=== PATIENT | male | born 1950 | race Caucasian/White ===

== ENCOUNTER → 2023-05-31 11:28 | Outpatient (REF) | payer MEDICARE, SELFPAY | LOC: HWRAD 11:28 | PROVIDERS: ATTENDING PHYSICIAN Internal Medicine Rheumatology; FAMILY PHYSICIAN Physician Assistant Medical | DX: M79.643 Pain in unspecified hand (principal) | CPT/HCPCS: 73130 ==

== ENCOUNTER → 2023-06-01 08:22 | Outpatient (REF) | payer MEDICARE, SELFPAY ==
[2023-06-01 10:33] LABS: % Basophils 0.7 % (0-2); % Eosinophils 2.8 % (0-6); % Immature Granulocytes 1.3 % (0-0.5); % Lymphocytes 17.8 % (20.5-51.1); % Monocytes 6.5 % (1.7-9.3); % Neutrophils 70.9 % (42.2-75.2); Absolute Basophils 0.1 10^3/uL (0-0.2); Absolute Eosinophils 0.2 10^3/uL (0-0.7); Absolute Immature Granulocytes 0.1 10^3/uL (0-0.05); Absolute Lymphocytes 1.5 10^3/uL (1.2-3.4); Absolute Monocytes 0.5 10^3/uL (0.1-0.6); Absolute Neutrophils 5.9 10^3/uL (1.4-6.5); Hematocrit 36.2 % (39.0-52.0); Hemoglobin 12.2 g/dL (13.0-18.0); Mean Corp Hgb Conc. 33.7 g/dL (33.0-37.0); Mean Corpuscular Hgb 28.8 pg (27.0-31.0); Mean Corpuscular Volume 85.4 fL (80.0-94.0); Mean Platelet Volume 9.5 fL (7.4-10.4); Nucleated Red Blood Cells % 0 % (-); Platelet Count 382 10^3/uL (130-400); Red Blood Cell Count 4.24 10^6/uL (4.70-6.10); Red Cell Dist. Width 15.3 % (11.5-14.5); White Blood Cell Count 8.3 10^3/uL (4.8-10.8)
[2023-06-01 10:57] LABS: ALT (SGPT) 17 U/L (0-50); AST (SGOT) 22 U/L (17-59); Albumin 4.2 g/dl (3.5-5.0); Alkaline Phosphatase 66 U/L (38-126); Blood Urea Nitrogen 25 mg/dl (9-20); Calcium 9.4 mg/dl (8.4-10.2); Carbon Dioxide 22 mmol/L (22-30); Chloride 103 mmol/L (98-107); Glucose 96 mg/dl (70-99); Potassium 4.6 mmol/L (3.5-5.1); Sodium 136 mmol/L (135-145); Total Bilirubin 0.7 mg/dl (0.2-1.3); Total Protein 6.7 g/dl (6.3-8.2); eGFR > 60.00
[2023-06-01 11:23] LABS: Erythrocyte Sed Rate 24 mm/hour (0-20)
[2023-06-01 17:42] LABS: Rheumatoid Agglutinin Less Than 10 IU (<10 IU)
[2023-06-01 19:52] LABS: Hepatitis B Surface Antigen Negative (Negative)
[2023-06-01 20:10] LABS: Hepatitis B Core Ab, Total Negative (Negative); Hepatitis B Surface Antibody Negative; Hepatitis C Antibody Negative (Negative)
[2023-06-03 00:46] LABS: ds-DNA Ab, IgG Reflex To Titer 4 IU (0-24)
[2023-06-03 01:53] LABS: Smith/RNP (ENA), IgG 3 Units (0-19)
[2023-06-03 02:39] LABS: ANA, IgG Reflex to HEp-2 None Detected (None Detected)
[2023-06-03 14:04] LABS: Quantiferon Mitogen minus NIL 5.66 IU/mL; Quantiferon NIL 0.01 IU/mL; Quantiferon Plus TB1 minus NIL 0.01 IU/mL (0.00-0.34); Quantiferon Plus TB2 minus NIL 0.01 IU/mL (0.00-0.34); Quantiferon TB Gold Plus Negative (Negative)
[2023-06-03 16:48] LABS: SSA 52 (Ro)(ENA) Ab, IgG 2 AU/mL (0-40); SSA 60 (Ro)(ENA) Ab, IgG 0 AU/mL (0-40); SSB (La)(ENA) Ab, IgG 0 AU/mL (0-40); Smith (ENA) Antibody, IgG 0 AU/mL (0-40)
== END ==
LOC: HWLAB 08:22
PROVIDERS: ATTENDING PHYSICIAN Internal Medicine Rheumatology; FAMILY PHYSICIAN Physician Assistant Medical
DX: E55.9 Vitamin D deficiency, unspecified (principal); M06.4 Inflammatory polyarthropathy; Z11.1 Encounter for screening for respiratory tuberculosis; Z11.59 Encounter for screening for other viral diseases
CPT/HCPCS: 36415; 80053; 85025; 85652; 86038; 86140; 86225; 86235; 86430; 86480; 86704; 86706; 86803; 87340

== ENCOUNTER → 2023-07-28 08:57 | Outpatient (REF) | payer MEDICARE, SELFPAY ==
[2023-07-28 12:34] LABS: % Basophils 0.2 % (0-2); % Eosinophils 0.1 % (0-6); % Immature Granulocytes 0.5 % (0-0.5); % Lymphocytes 4.5 % (20.5-51.1); % Monocytes 2.7 % (1.7-9.3); Absolute Immature Granulocytes 0.1 10^3/uL (0-0.05); Absolute Lymphocytes 0.5 10^3/uL (1.2-3.4); Absolute Monocytes 0.3 10^3/uL (0.1-0.6); Absolute Neutrophils 10.9 10^3/uL (1.4-6.5); Hematocrit 35.3 % (39.0-52.0); Hemoglobin 11.6 g/dL (13.0-18.0); Mean Corp Hgb Conc. 32.9 g/dL (33.0-37.0); Mean Corpuscular Hgb 29.4 pg (27.0-31.0); Mean Corpuscular Volume 89.6 fL (80.0-94.0); Mean Platelet Volume 10.1 fL (7.4-10.4); Nucleated Red Blood Cells % 0 % (-); Platelet Count 305 10^3/uL (130-400); Red Blood Cell Count 3.94 10^6/uL (4.70-6.10); Red Cell Dist. Width 16.7 % (11.5-14.5); White Blood Cell Count 11.9 10^3/uL (4.8-10.8)
[2023-07-28 12:51] LABS: ALT (SGPT) 20 U/L (0-50); AST (SGOT) 20 U/L (17-59); Albumin 3.8 g/dl (3.5-5.0); Alkaline Phosphatase 58 U/L (38-126); Blood Urea Nitrogen 49 mg/dl (9-20); Calcium 9.6 mg/dl (8.4-10.2); Carbon Dioxide 25 mmol/L (22-30); Chloride 101 mmol/L (98-107); Glucose 124 mg/dl (70-99); Potassium 4.5 mmol/L (3.5-5.1); Sodium 137 mmol/L (135-145); Total Bilirubin 0.8 mg/dl (0.2-1.3); Total Protein 6.5 g/dl (6.3-8.2); eGFR 49.47
[2023-07-28 16:01] LABS: Erythrocyte Sed Rate 79 mm/hour (0-20)
== END ==
LOC: HWLAB 08:57
PROVIDERS: ATTENDING PHYSICIAN Internal Medicine Rheumatology; FAMILY PHYSICIAN Physician Assistant Medical
DX: M06.4 Inflammatory polyarthropathy (principal); Z79.899 Other long term (current) drug therapy
CPT/HCPCS: 36415; 80053; 85025; 85652; 86140

== ENCOUNTER → 2023-07-31 07:26 | Outpatient (REF) | payer MEDICARE, SELFPAY | LOC: HWRAD 07:26 | PROVIDERS: ATTENDING PHYSICIAN Internal Medicine Critical Care Medicine; FAMILY PHYSICIAN Physician Assistant Medical | DX: Z87.891 Personal history of nicotine dependence (principal) | CPT/HCPCS: 71271 ==

== ENCOUNTER → 2023-08-08 08:42 | Outpatient (REF) | payer MEDICARE, SELFPAY | LOC: HWLAB 08:42 | PROVIDERS: ATTENDING PHYSICIAN Nurse Practitioner Adult Health; FAMILY PHYSICIAN Physician Assistant Medical | DX: J84.9 Interstitial pulmonary disease, unspecified (principal) | CPT/HCPCS: 87070; 87205 ==

== ENCOUNTER → 2023-08-11 10:03 | Outpatient (REF) | payer MEDICARE, SELFPAY | LOC: HWRCS 10:03 | PROVIDERS: ATTENDING PHYSICIAN Nurse Practitioner Adult Health; FAMILY PHYSICIAN Physician Assistant Medical | DX: J84.9 Interstitial pulmonary disease, unspecified (principal) | CPT/HCPCS: 93306 ==

== ENCOUNTER → 2023-08-17 10:35 | Outpatient (REF) | payer MEDICARE, SELFPAY ==
[2023-08-17 12:12] LABS: % Basophils 0.7 % (0-2); % Eosinophils 0.2 % (0-6); % Immature Granulocytes 0.5 % (0-0.5); % Lymphocytes 8.4 % (20.5-51.1); % Monocytes 3.4 % (1.7-9.3); % Neutrophils 86.8 % (42.2-75.2); Absolute Lymphocytes 0.5 10^3/uL (1.2-3.4); Absolute Monocytes 0.2 10^3/uL (0.1-0.6); Absolute Neutrophils 5.2 10^3/uL (1.4-6.5); Hematocrit 32.8 % (39.0-52.0); Hemoglobin 10.7 g/dL (13.0-18.0); Mean Corp Hgb Conc. 32.6 g/dL (33.0-37.0); Mean Corpuscular Hgb 29.6 pg (27.0-31.0); Mean Corpuscular Volume 90.9 fL (80.0-94.0); Nucleated Red Blood Cells % 0 % (-); Platelet Count 392 10^3/uL (130-400); Red Blood Cell Count 3.61 10^6/uL (4.70-6.10); Red Cell Dist. Width 17.6 % (11.5-14.5)
[2023-08-17 13:47] LABS: ALT (SGPT) 24 U/L (0-50); AST (SGOT) 26 U/L (17-59); Albumin 3.9 g/dl (3.5-5.0); Alkaline Phosphatase 65 U/L (38-126); Blood Urea Nitrogen 35 mg/dl (9-20); Calcium 9.4 mg/dl (8.4-10.2); Carbon Dioxide 26 mmol/L (22-30); Chloride 106 mmol/L (98-107); Glucose 111 mg/dl (70-99); Iron 78 ug/dl (49-181); Potassium 5.5 mmol/L (3.5-5.1); Total Bilirubin 0.4 mg/dl (0.2-1.3); Total Protein 6.4 g/dl (6.3-8.2); eGFR > 60.00
[2023-08-17 13:56] LABS: Percent Saturation 26 % (20-50); Total Iron Binding Capacity 290 ug/dl (261-462)
[2023-08-17 14:01] LABS: Sodium 137 mmol/L (135-145)
[2023-08-17 14:06] LABS: Erythrocyte Sed Rate 30 mm/hour (0-20)
[2023-08-17 14:54] LABS: Ferritin 38.1 ng/ml (17.9-464.0)
[2023-08-21 12:30] LABS: Albumin 3.75 g/dL (3.75-5.01); Alpha 1 Globulin 0.33 g/dL (0.19-0.46); Alpha 2 Globulin 0.88 g/dL (0.48-1.05); Free Kappa Light Chains,Quant 21.74 mg/L (3.30-19.40); Free Lambda Light Chains,Quant 15.96 mg/L (5.71-26.30); IgA 190 mg/dL (68-408); IgG 629 mg/dL (768-1632); IgM 53 mg/dL (35-263); Immunofixation Electrophoresis IFE Done; Kappa/Lambda Fr Light Ratio 1.36 (0.26-1.65); Total Protein-Electrophoresis 6.3 g/dL (6.3-8.2)
== END ==
LOC: HWLAB 10:35
PROVIDERS: ATTENDING PHYSICIAN Internal Medicine Rheumatology; FAMILY PHYSICIAN Physician Assistant Medical
DX: D64.9 Anemia, unspecified (principal); M06.4 Inflammatory polyarthropathy; N18.30 Chronic kidney disease, stage 3 unspecified; Z79.899 Other long term (current) drug therapy
CPT/HCPCS: 36415; 80053; 82728; 82784; 83521; 83540; 83550; 84155; 84165; 85025; 85652; 86140; 86334

== ENCOUNTER → 2023-09-11 08:51 | Outpatient (REF) | payer MEDICARE, SELFPAY ==
[2023-09-11 12:03] LABS: % Basophils 0.2 % (0-2); % Eosinophils 0.5 % (0-6); % Immature Granulocytes 0.5 % (0-0.5); % Lymphocytes 7.7 % (20.5-51.1); % Monocytes 5.6 % (1.7-9.3); % Neutrophils 85.5 % (42.2-75.2); Absolute Lymphocytes 0.6 10^3/uL (1.2-3.4); Absolute Monocytes 0.5 10^3/uL (0.1-0.6); Absolute Neutrophils 7.2 10^3/uL (1.4-6.5); Hematocrit 33.3 % (39.0-52.0); Hemoglobin 11.1 g/dL (13.0-18.0); Mean Corp Hgb Conc. 33.3 g/dL (33.0-37.0); Mean Corpuscular Hgb 30.7 pg (27.0-31.0); Mean Corpuscular Volume 92.2 fL (80.0-94.0); Mean Platelet Volume 9.5 fL (7.4-10.4); Nucleated Red Blood Cells % 0 % (-); Platelet Count 310 10^3/uL (130-400); Red Blood Cell Count 3.61 10^6/uL (4.70-6.10); Red Cell Dist. Width 16.4 % (11.5-14.5); White Blood Cell Count 8.4 10^3/uL (4.8-10.8)
[2023-09-11 12:04] LABS: Erythrocyte Sed Rate 11 mm/hour (0-20)
[2023-09-11 12:42] LABS: ALT (SGPT) 22 U/L (0-50); AST (SGOT) 22 U/L (17-59); Albumin 3.6 g/dl (3.5-5.0); Alkaline Phosphatase 52 U/L (38-126); Blood Urea Nitrogen 37 mg/dl (9-20); Calcium 9.2 mg/dl (8.4-10.2); Carbon Dioxide 24 mmol/L (22-30); Chloride 108 mmol/L (98-107); Glucose 106 mg/dl (70-99); Potassium 4.4 mmol/L (3.5-5.1); Sodium 140 mmol/L (135-145); Total Bilirubin 0.7 mg/dl (0.2-1.3); eGFR > 60.00
[2023-09-11 12:43] LABS: C-Reactive Protein < 5.00 mg/L (0.0-10.00)
== END ==
LOC: HWLAB 08:51
PROVIDERS: ATTENDING PHYSICIAN Internal Medicine Rheumatology; FAMILY PHYSICIAN Physician Assistant Medical
DX: D64.9 Anemia, unspecified (principal); M06.4 Inflammatory polyarthropathy; N18.30 Chronic kidney disease, stage 3 unspecified
CPT/HCPCS: 36415; 80053; 85025; 85652; 86140

== ENCOUNTER → 2023-09-26 07:26 | Outpatient (REF) | payer MEDICARE, SELFPAY | LOC: HWRAD 07:26 | PROVIDERS: ATTENDING PHYSICIAN Nurse Practitioner Adult Health; FAMILY PHYSICIAN Physician Assistant Medical | DX: R91.1 Solitary pulmonary nodule (principal) | CPT/HCPCS: 71250 ==

== ENCOUNTER → 2023-11-06 07:07 | Outpatient (REF) | payer MEDICARE, SELFPAY ==
[2023-11-06 10:00] LABS: ALT (SGPT) 20 U/L (0-50); AST (SGOT) 21 U/L (17-59); Albumin 3.8 g/dl (3.5-5.0); Alkaline Phosphatase 58 U/L (38-126); Blood Urea Nitrogen 26 mg/dl (9-20); Calcium 9.5 mg/dl (8.4-10.2); Carbon Dioxide 28 mmol/L (22-30); Chloride 104 mmol/L (98-107); Glucose 92 mg/dl (70-99); Potassium 4.3 mmol/L (3.5-5.1); Sodium 138 mmol/L (135-145); Total Bilirubin 0.4 mg/dl (0.2-1.3); Total Protein 6.1 g/dl (6.3-8.2); eGFR > 60.00
[2023-11-06 10:04] LABS: % Basophils 0.7 % (0-2); % Eosinophils 2.1 % (0-6); % Immature Granulocytes 0.3 % (0-0.5); % Lymphocytes 24.1 % (20.5-51.1); % Monocytes 8.8 % (1.7-9.3); Absolute Basophils 0.1 10^3/uL (0-0.2); Absolute Eosinophils 0.1 10^3/uL (0-0.7); Absolute Lymphocytes 1.6 10^3/uL (1.2-3.4); Absolute Monocytes 0.6 10^3/uL (0.1-0.6); Absolute Neutrophils 4.4 10^3/uL (1.4-6.5); Hematocrit 34.9 % (39.0-52.0); Hemoglobin 11.3 g/dL (13.0-18.0); Mean Corp Hgb Conc. 32.4 g/dL (33.0-37.0); Mean Corpuscular Hgb 29.6 pg (27.0-31.0); Mean Corpuscular Volume 91.4 fL (80.0-94.0); Mean Platelet Volume 10.1 fL (7.4-10.4); Nucleated Red Blood Cells % 0 % (-); Platelet Count 306 10^3/uL (130-400); Red Blood Cell Count 3.82 10^6/uL (4.70-6.10); Red Cell Dist. Width 13.8 % (11.5-14.5); White Blood Cell Count 6.8 10^3/uL (4.8-10.8)
[2023-11-06 10:23] LABS: Erythrocyte Sed Rate 22 mm/hour (0-20)
== END ==
LOC: HWLAB 07:07
PROVIDERS: ATTENDING PHYSICIAN Physician Assistant; FAMILY PHYSICIAN Physician Assistant Medical
DX: D64.9 Anemia, unspecified (principal); M06.4 Inflammatory polyarthropathy; M15.0 Primary generalized (osteo)arthritis; M47.816 Spondylosis without myelopathy or radiculopathy, lumbar region; M47.892 Other spondylosis, cervical region; N18.30 Chronic kidney disease, stage 3 unspecified; R06.02 Shortness of breath; Z79.899 Other long term (current) drug therapy
CPT/HCPCS: 36415; 80053; 85025; 85652; 86140

== ENCOUNTER → 2023-11-12 07:02 | Outpatient (REF) | payer MEDICARE, SELFPAY | LOC: PAVMRI 07:02 | PROVIDERS: ATTENDING PHYSICIAN Physician Assistant; FAMILY PHYSICIAN Physician Assistant Medical | DX: M25.511 Pain in right shoulder (principal) | CPT/HCPCS: 73221 ==

== ENCOUNTER → 2023-11-17 13:09 | Outpatient (REF) | payer MEDICARE, SELFPAY | LOC: RAD 13:09 | PROVIDERS: ATTENDING PHYSICIAN Orthopaedic Surgery; FAMILY PHYSICIAN Physician Assistant Medical | DX: M79.662 Pain in left lower leg (principal) | CPT/HCPCS: 93971 ==

== ENCOUNTER → 2023-12-21 07:04 | Outpatient (REF) | payer MEDICARE, SELFPAY ==
[2023-12-21 09:22] LABS: % Basophils 0.7 % (0-2); % Eosinophils 1.7 % (0-6); % Immature Granulocytes 0.5 % (0-0.5); % Lymphocytes 22.2 % (20.5-51.1); % Monocytes 10.5 % (1.7-9.3); % Neutrophils 64.4 % (42.2-75.2); Absolute Eosinophils 0.1 10^3/uL (0-0.7); Absolute Lymphocytes 1.3 10^3/uL (1.2-3.4); Absolute Monocytes 0.6 10^3/uL (0.1-0.6); Absolute Neutrophils 3.8 10^3/uL (1.4-6.5); Hematocrit 33.5 % (39.0-52.0); Hemoglobin 11.2 g/dL (13.0-18.0); Mean Corp Hgb Conc. 33.4 g/dL (33.0-37.0); Mean Corpuscular Hgb 30.5 pg (27.0-31.0); Mean Corpuscular Volume 91.3 fL (80.0-94.0); Mean Platelet Volume 9.5 fL (7.4-10.4); Nucleated Red Blood Cells % 0 % (-); Platelet Count 258 10^3/uL (130-400); Red Blood Cell Count 3.67 10^6/uL (4.70-6.10); White Blood Cell Count 5.9 10^3/uL (4.8-10.8)
[2023-12-21 10:59] LABS: ALT (SGPT) 29 U/L (0-50); AST (SGOT) 32 U/L (17-59); Albumin 3.9 g/dl (3.5-5.0); Alkaline Phosphatase 55 U/L (38-126); Blood Urea Nitrogen 31 mg/dl (9-20); Calcium 9.1 mg/dl (8.4-10.2); Carbon Dioxide 23 mmol/L (22-30); Chloride 104 mmol/L (98-107); Glucose 99 mg/dl (70-99); Potassium 4.5 mmol/L (3.5-5.1); Sodium 139 mmol/L (135-145); Total Bilirubin 0.6 mg/dl (0.2-1.3); Total Protein 6.1 g/dl (6.3-8.2); eGFR > 60.00
[2023-12-21 11:55] LABS: Erythrocyte Sed Rate 20 mm/hour (0-20)
== END ==
LOC: HWLAB 07:04
PROVIDERS: ATTENDING PHYSICIAN Internal Medicine Rheumatology; FAMILY PHYSICIAN Physician Assistant Medical
DX: M06.4 Inflammatory polyarthropathy (principal); Z79.899 Other long term (current) drug therapy
CPT/HCPCS: 36415; 80053; 85025; 85652; 86140

== ENCOUNTER → 2024-01-05 07:13 | Outpatient (REF) | payer MEDICARE, SELFPAY | LOC: HWRAD 07:13 | PROVIDERS: ATTENDING PHYSICIAN Otolaryngology; FAMILY PHYSICIAN Physician Assistant Medical | DX: J32.2 Chronic ethmoidal sinusitis (principal) | CPT/HCPCS: 70486 ==

== ENCOUNTER → 2024-01-26 07:24 | Outpatient (REF) | payer MEDICARE, SELFPAY | LOC: HWCARD 07:24 | PROVIDERS: ATTENDING PHYSICIAN Otolaryngology; FAMILY PHYSICIAN Physician Assistant Medical | DX: Z01.818 Encounter for other preprocedural examination (principal) | CPT/HCPCS: 93005 ==

== ENCOUNTER → 2024-02-14 13:00 | Outpatient (REF) | payer MEDICARE, SELFPAY | LOC: CLAB 13:00 | PROVIDERS: ATTENDING PHYSICIAN Otolaryngology | DX: J32.2 Chronic ethmoidal sinusitis (principal) | CPT/HCPCS: 88304; 88311; 87070; 87075; 87102; 87147 ==

== ENCOUNTER → 2024-03-05 07:12 | Outpatient (REF) | payer MEDICARE, SELFPAY ==
[2024-03-05 09:54] LABS: % Basophils 0.7 % (0-2); % Eosinophils 2.2 % (0-6); % Immature Granulocytes 0.4 % (0-0.5); % Lymphocytes 15.6 % (20.5-51.1); % Monocytes 7.3 % (1.7-9.3); % Neutrophils 73.8 % (42.2-75.2); Absolute Basophils 0.1 10^3/uL (0-0.2); Absolute Eosinophils 0.2 10^3/uL (0-0.7); Absolute Lymphocytes 1.2 10^3/uL (1.2-3.4); Absolute Monocytes 0.6 10^3/uL (0.1-0.6); Absolute Neutrophils 5.6 10^3/uL (1.4-6.5); Hematocrit 33.2 % (39.0-52.0); Hemoglobin 10.7 g/dL (13.0-18.0); Mean Corp Hgb Conc. 32.2 g/dL (33.0-37.0); Mean Corpuscular Hgb 29.2 pg (27.0-31.0); Mean Corpuscular Volume 90.5 fL (80.0-94.0); Mean Platelet Volume 9.3 fL (7.4-10.4); Nucleated Red Blood Cells % 0 % (-); Platelet Count 340 10^3/uL (130-400); Red Blood Cell Count 3.67 10^6/uL (4.70-6.10); Red Cell Dist. Width 14.6 % (11.5-14.5); White Blood Cell Count 7.6 10^3/uL (4.8-10.8)
[2024-03-05 10:04] LABS: ALT (SGPT) 23 U/L (0-50); AST (SGOT) 24 U/L (17-59); Albumin 3.8 g/dl (3.5-5.0); Alkaline Phosphatase 65 U/L (38-126); Blood Urea Nitrogen 28 mg/dl (9-20); Calcium 9.6 mg/dl (8.4-10.2); Carbon Dioxide 26 mmol/L (22-30); Chloride 103 mmol/L (98-107); Glucose 98 mg/dl (70-99); Potassium 4.6 mmol/L (3.5-5.1); Sodium 140 mmol/L (135-145); Total Bilirubin 0.5 mg/dl (0.2-1.3); Total Protein 6.2 g/dl (6.3-8.2); eGFR > 60.00
[2024-03-05 10:15] LABS: Erythrocyte Sed Rate 37 mm/hour (0-20)
== END ==
LOC: HWLAB 07:12
PROVIDERS: ATTENDING PHYSICIAN Internal Medicine Rheumatology; FAMILY PHYSICIAN Physician Assistant Medical
DX: M06.4 Inflammatory polyarthropathy (principal); Z79.899 Other long term (current) drug therapy
CPT/HCPCS: 36415; 80053; 85025; 85652; 86140

== ENCOUNTER → 2024-03-11 07:16 | Outpatient (REF) | payer MEDICARE, SELFPAY | LOC: HWRAD 07:16 | PROVIDERS: ATTENDING PHYSICIAN Nurse Practitioner Adult Health; FAMILY PHYSICIAN Physician Assistant Medical | DX: R91.1 Solitary pulmonary nodule (principal) | CPT/HCPCS: 71250 ==

== ENCOUNTER → 2024-05-07 07:11 | Outpatient (REF) | payer MEDICARE, SELFPAY | LOC: HWRAD 07:11 | PROVIDERS: ATTENDING PHYSICIAN Nurse Practitioner Family; FAMILY PHYSICIAN Physician Assistant Medical | DX: R91.8 Other nonspecific abnormal finding of lung field (principal) | CPT/HCPCS: 71250 ==

== ENCOUNTER → 2024-06-02 08:21 | Outpatient (REF) | payer MEDICARE, SELFPAY | LOC: MRI 3T 08:21 | PROVIDERS: ATTENDING PHYSICIAN Orthopaedic Surgery; FAMILY PHYSICIAN Physician Assistant Medical | DX: M75.82 Other shoulder lesions, left shoulder (principal) | CPT/HCPCS: 73221 ==

== ENCOUNTER → 2024-06-13 06:57 | Outpatient (REF) | payer MEDICARE, SELFPAY ==
[2024-06-13 08:51] LABS: % Basophils 0.8 % (0-2); % Eosinophils 1.9 % (0-6); % Immature Granulocytes 0.3 % (0-0.5); % Lymphocytes 22.7 % (20.5-51.1); % Monocytes 7.8 % (1.7-9.3); % Neutrophils 66.5 % (42.2-75.2); Absolute Basophils 0.1 10^3/uL (0-0.2); Absolute Eosinophils 0.1 10^3/uL (0-0.7); Absolute Lymphocytes 1.3 10^3/uL (1.2-3.4); Absolute Monocytes 0.5 10^3/uL (0.1-0.6); Absolute Neutrophils 3.9 10^3/uL (1.4-6.5); Hematocrit 34.5 % (39.0-52.0); Hemoglobin 11.1 g/dL (13.0-18.0); Mean Corp Hgb Conc. 32.2 g/dL (33.0-37.0); Mean Corpuscular Hgb 29.6 pg (27.0-31.0); Mean Platelet Volume 9.6 fL (7.4-10.4); Nucleated Red Blood Cells % 0 % (-); Platelet Count 287 10^3/uL (130-400); Red Blood Cell Count 3.75 10^6/uL (4.70-6.10); Red Cell Dist. Width 14.5 % (11.5-14.5); White Blood Cell Count 5.9 10^3/uL (4.8-10.8)
[2024-06-13 09:44] LABS: Blood Urea Nitrogen 31 mg/dl (9-20); Calcium 9.3 mg/dl (8.4-10.2); Carbon Dioxide 27 mmol/L (22-30); Chloride 105 mmol/L (98-107); Glucose 82 mg/dl (70-99); Potassium 4.2 mmol/L (3.5-5.1); Sodium 138 mmol/L (135-145); eGFR > 60.00
== END ==
LOC: SDSPAT 06:57
PROVIDERS: ATTENDING PHYSICIAN Orthopaedic Surgery; FAMILY PHYSICIAN Physician Assistant Medical
DX: Z01.818 Encounter for other preprocedural examination (principal)
CPT/HCPCS: 36415; 80048; 85025; 93005

== ENCOUNTER 2024-06-20 06:24 | Day surgery (SDC) | payer MEDICARE, SELFPAY ==
[2024-06-13 14:01] VITALS: BMI 25.6
[2024-06-20] VITALS (12 sets, daily range): BP systolic 150–164; BP diastolic 83–97; BMI 25.6
[2024-06-20] MEDS: TYLENOL 1000 MG PO (08:55)
[2024-06-20] MEDS: CELEBREX 200 MG PO (08:55)
[2024-06-20] MEDS: NORMOSOL-R/PLASMALYTE-A 1000 IV (09:01)
[2024-06-20] MEDS: DILAUDID 0.5 MG IV (14:59)
[2024-06-20] MEDS: DILAUDID 0.25 MG IV (15:18)
== END 2024-06-20 17:17 | disposition home or self-care (01) ==
LOC: SDS 06:24
PROVIDERS: ATTENDING PHYSICIAN Orthopaedic Surgery
DX: M75.122 Complete rotator cuff tear or rupture of left shoulder, not specified as traumatic (principal); M75.42 Impingement syndrome of left shoulder
CPT/HCPCS: 29827; C1713

== ENCOUNTER → 2024-08-06 08:03 | Outpatient (REF) | payer MEDICARE, SELFPAY ==
[2024-08-06 09:57] LABS: ALT (SGPT) 25 U/L (0-50); AST (SGOT) 23 U/L (17-59); Albumin 3.7 g/dl (3.5-5.0); Alkaline Phosphatase 66 U/L (38-126); Blood Urea Nitrogen 28 mg/dl (9-20); Calcium 9.3 mg/dl (8.4-10.2); Carbon Dioxide 27 mmol/L (22-30); Chloride 109 mmol/L (98-107); Glucose 98 mg/dl (70-99); Potassium 4.3 mmol/L (3.5-5.1); Sodium 141 mmol/L (135-145); Total Bilirubin 0.5 mg/dl (0.2-1.3); Total Protein 5.9 g/dl (6.3-8.2); eGFR > 60.00
[2024-08-06 10:20] LABS: Vitamin D, 25-OH*** 35.1 ng/mL (30-80)
[2024-08-06 10:24] LABS: % Basophils 0.9 % (0-2); % Eosinophils 1.5 % (0-6); % Immature Granulocytes 0.6 % (0-0.5); % Lymphocytes 8.7 % (20.5-51.1); % Monocytes 5.7 % (1.7-9.3); % Neutrophils 82.6 % (42.2-75.2); Absolute Basophils 0.1 10^3/uL (0-0.2); Absolute Eosinophils 0.1 10^3/uL (0-0.7); Absolute Immature Granulocytes 0.1 10^3/uL (0-0.05); Absolute Lymphocytes 0.8 10^3/uL (1.2-3.4); Absolute Monocytes 0.5 10^3/uL (0.1-0.6); Absolute Neutrophils 7.3 10^3/uL (1.4-6.5); Hematocrit 33.4 % (39.0-52.0); Hemoglobin 10.9 g/dL (13.0-18.0); Mean Corp Hgb Conc. 32.6 g/dL (33.0-37.0); Mean Corpuscular Hgb 30.1 pg (27.0-31.0); Mean Corpuscular Volume 92.3 fL (80.0-94.0); Mean Platelet Volume 9.9 fL (7.4-10.4); Nucleated Red Blood Cells % 0 % (-); Platelet Count 277 10^3/uL (130-400); Red Blood Cell Count 3.62 10^6/uL (4.70-6.10); Red Cell Dist. Width 14.6 % (11.5-14.5); White Blood Cell Count 8.8 10^3/uL (4.8-10.8)
[2024-08-06 11:27] LABS: Erythrocyte Sed Rate 10 mm/hour (0-20)
== END ==
LOC: HWLAB 08:03
PROVIDERS: ATTENDING PHYSICIAN Internal Medicine Rheumatology; FAMILY PHYSICIAN Physician Assistant Medical
DX: E55.9 Vitamin D deficiency, unspecified (principal); M06.4 Inflammatory polyarthropathy; Z79.899 Other long term (current) drug therapy
CPT/HCPCS: 36415; 80053; 82306; 85025; 85652; 86140

== ENCOUNTER → 2024-08-29 08:17 | Outpatient (REF) | payer MEDICARE, SELFPAY ==
[2024-08-31 13:33] LABS: Quantiferon Mitogen minus NIL 1.97 IU/mL; Quantiferon NIL 0.02 IU/mL; Quantiferon Plus TB1 minus NIL 0.01 IU/mL (<=0.34); Quantiferon TB Gold Plus Negative (Negative)
== END ==
LOC: HWLAB 08:17
PROVIDERS: ATTENDING PHYSICIAN Internal Medicine Rheumatology; FAMILY PHYSICIAN Physician Assistant Medical
DX: Z11.1 Encounter for screening for respiratory tuberculosis (principal)
CPT/HCPCS: 36415; 86480

== ENCOUNTER → 2024-09-10 16:00 | Outpatient (REF) | payer MEDICARE, SELFPAY | LOC: CLAB 16:00 | PROVIDERS: ATTENDING PHYSICIAN Physician Assistant | DX: J32.0 Chronic maxillary sinusitis (principal) | CPT/HCPCS: 87070; 87077; 87147; 87186; 87205 ==

== ENCOUNTER → 2024-09-20 12:25 | Outpatient (REF) | payer MEDICARE, SELFPAY ==
[2024-09-20 16:05] LABS: % Basophils 0.9 % (0-2); % Eosinophils 0.1 % (0-6); % Immature Granulocytes 0.3 % (0-0.5); % Monocytes 4.3 % (1.7-9.3); % Neutrophils 88.4 % (42.2-75.2); Absolute Basophils 0.1 10^3/uL (0-0.2); Absolute Lymphocytes 0.4 10^3/uL (1.2-3.4); Absolute Monocytes 0.3 10^3/uL (0.1-0.6); Absolute Neutrophils 6.2 10^3/uL (1.4-6.5); Hematocrit 33.9 % (39.0-52.0); Hemoglobin 11.3 g/dL (13.0-18.0); Mean Corp Hgb Conc. 33.3 g/dL (33.0-37.0); Mean Corpuscular Hgb 30.7 pg (27.0-31.0); Mean Corpuscular Volume 92.1 fL (80.0-94.0); Mean Platelet Volume 10.3 fL (7.4-10.4); Nucleated Red Blood Cells % 0 % (-); Platelet Count 278 10^3/uL (130-400); Red Blood Cell Count 3.68 10^6/uL (4.70-6.10); White Blood Cell Count 7.1 10^3/uL (4.8-10.8)
[2024-09-20 16:12] LABS: ALT (SGPT) 27 U/L (0-50); AST (SGOT) 33 U/L (17-59); Alkaline Phosphatase 58 U/L (38-126); Blood Urea Nitrogen 25 mg/dl (9-20); Calcium 9.5 mg/dl (8.4-10.2); Carbon Dioxide 25 mmol/L (22-30); Chloride 111 mmol/L (98-107); Glucose 103 mg/dl (70-99); Potassium 3.9 mmol/L (3.5-5.1); Sodium 141 mmol/L (135-145); Total Bilirubin 0.5 mg/dl (0.2-1.3); Total Protein 6.3 g/dl (6.3-8.2); eGFR > 60.00
[2024-09-20 16:28] LABS: Erythrocyte Sed Rate 46 mm/hour (0-20)
== END ==
LOC: HWLAB 12:25
PROVIDERS: ATTENDING PHYSICIAN Internal Medicine Rheumatology; FAMILY PHYSICIAN Physician Assistant Medical
DX: M06.4 Inflammatory polyarthropathy (principal); Z79.899 Other long term (current) drug therapy
CPT/HCPCS: 36415; 80053; 85025; 85652; 86140

== ENCOUNTER → 2024-10-02 12:30 | Outpatient (REF) | payer MEDICARE, SELFPAY | LOC: CLAB 12:30 | PROVIDERS: ATTENDING PHYSICIAN Specialist | DX: R22.31 Localized swelling, mass and lump, right upper limb (principal) | CPT/HCPCS: 88304 ==

== ENCOUNTER 2024-11-25 23:22 | Inpatient (IN) | payer MEDICARE, SELFPAY ==
[2024-11-25] VITALS (9 sets, daily range): BP systolic 112–170; BP diastolic 79–108; BMI 23.0
[2024-11-25 13:42] LABS: Hematocrit 42.6 % (39.0-52.0); Hemoglobin 14.0 g/dL (13.0-18.0); Mean Corp Hgb Conc. 32.9 g/dL (33.0-37.0); Mean Corpuscular Volume 90.3 fL (80.0-94.0); Nucleated Red Blood Cells % 0 % (-); Platelet Count 285 10^3/uL (130-400); Red Cell Dist. Width 15.3 % (11.5-14.5)
[2024-11-25 13:56] LABS: ALT (SGPT) 62 U/L (0-50); AST (SGOT) 45 U/L (17-59); Albumin 4.9 g/dl (3.5-5.0); Alkaline Phosphatase 58 U/L (38-126); Blood Urea Nitrogen 66 mg/dl (9-20); Calcium 10.2 mg/dl (8.4-10.2); Carbon Dioxide 26 mmol/L (22-30); Chloride 98 mmol/L (98-107); Glucose 166 mg/dl (70-99); Potassium 4.3 mmol/L (3.5-5.1); Sodium 137 mmol/L (135-145); Total Protein 7.4 g/dl (6.3-8.2); eGFR 45.50
--- NOTE | 2024-11-25 18:20 | ED.GENMED ---
History of Present Illness
General
Chief Complaint: Abdominal Pain
Time Seen by Provider: 11/25/24 17:17
History of Present Illness
History of Present Illness:
74-year-old male presents to the emergency department for evaluation of lower abdominal pain and intractable nausea and vomiting for the past 4 days. States he is lost 11 pounds. Unable to tolerate any p.o. fluids. Prior abdominal surgery
includes right inguinal hernia and left inguinal hernia repair. Denies any fevers, night sweats. He notes that he has not passed any stool or gas in the past 4 days as well.
Review of Systems
Review of Systems
Allergies reviewed?: Yes
All Other Systems: ROS reviewed and negative except as documented in HPI and ROS
Phy Exam
Physical Exam
Physical Exam:
GEN: Well appearing, NAD, WDWN
HEENT: Oral mucosa moist, no scleral icterus
Cardiac: Regular rate and rhythm, no murmurs
Lung: No respiratory distress, no tachypnea
Abdomen: Protuberant and mildly rigid, soft but prominent umbilical hernia noted, diffusely tender in the lower abdomen
MSK: No gross deformity or injuries
Skin: Good color, no pallor or jaundice, no rashes
Neuro: AO x3, moves all extremities freely
Psych: Calm, cooperative
Course
Orders/Labs/Results
Orders:
Orders
11/25/24 13:11
Electrocardiogram (*1) Urgent
Reason for Study: Abdominal Pain
11/25/24 13:12
EKG- Treatment ONCE
11/25/24 13:26
Complete Blood Count/With Diff Urgent
Comprehensive Metabolic Panel Urgent
11/25/24 18:18
CT Abd/Pel (IV only)-DH only Urgent
Comment:
Reason For Exam: abd pain/vomiting
Ondansetron Injectable [Zofran] 4 mg IV NOW STA
11/25/24 18:19
Lactated Ringers [Lr] 1,000 ml IV BOLUS
11/25/24 18:49
Lactic Acid Urgent
11/25/24 20:11
Lactated Ringers [Lr] 500 ml IV BOLUS
11/25/24 21:44
HYDROmorphone [Dilaudid] 0.5 mg IV NOW STA
11/25/24 22:48
Admit/Transfer Patient As Directed
Co-Sign Provider:
Level of Care: Inpatient admission
Assign to:: Medical/Surgical
Physician / Group: rafat
Diagnosis: small bowel obstruction
Reason for Hospitalization: small bowel obstruction
Expected length of stay greater than two midnights?: Yes
ELOS- Estimated Length of Stay in days: 2
I certify the patient meets the requirements for IP care: Yes
PRN Pain Medication Management As Directed
May give lesser potent ordered pain med per pt: Yes
preference::
Protocol:: Medication orders for pain may be administered in a
manner that supports deferring to patient preference
when the pt is:
- Requesting an ordered lesser potent pain medication.
Least to most potent pain medications are defined
as: acetaminophen < NSAID < tramadol < opioids
(morphine, oxycodone, hydromorphone).
- Requesting a lesser dose of the same medication IF
ORDERED.
- Requesting a less intrusive route of administration
if both routes are prescribed by the provider (PO <
IV).
11/25/24 22:50
Code Status As Directed
Resuscitation Status: Do not resuscitate
Reached after discussion with pt or family/Healthcare POA: Yes
DNR Bracelet Application ONCE
Abnormal Lab Results
11/25/24
13:26
MCHC 32.9 L g/dL
(33.0-37.0)
RDW 15.3 H %
(11.5-14.5)
Absolute Lymphs (auto) 0.4 L 10^3/uL
(1.2-3.4)
Neutrophils % 86.3 H %
(42.2-75.2)
Lymphocytes % 6.5 L %
(20.5-51.1)
BUN 66 H mg/dl
(9-20)
Creatinine 1.6 H mg/dL
(0.7-1.3)
Glucose 166 H mg/dl
(70-99)
ALT 62 H U/L
(0-50)
11/25/24 13:26
11/25/24 13:26
Vital Signs
Initial and Last Documented VS:
Initial Vital Signs
Temp Pulse Resp BP Pulse Ox
98.4 F 104 16 112/79 98
11/25/24 13:09 11/25/24 13:09 11/25/24 13:09 11/25/24 13:09 11/25/24 13:09
Last Documented Vital Signs
Temp Pulse Resp BP Pulse Ox
98.7 F 86 18 170/100 98
11/25/24 17:47 11/25/24 20:15 11/25/24 20:15 11/25/24 20:00 11/25/24 18:20
MDM/Problems Addressed
MDM/Problems Addressed:
After completion of CT, the patient was given IV opioids and placed in the Trendelenburg position with an ice pack over the abdomen for approximately 15 minutes before gentle hernia reduction was performed by myself successfully. Due to the
patient's significant SALAZAR in the setting of intense vomiting from temporary bowel obstruction he will be admitted to the hospital for observation
*Pulse Oximetry
SaO2: 98
Oxygen Mode of Delivery: Room air
Patient hypoxic: no
*Critical Care Note
Total Time (30-74mins, 75-104mins- exclusive of procedures): Not Applicable
ED Attending Note
-
Portions of this chart may have been created with voice recognition software.� Occasional wrong word or��sound alike� substitutions may have occurred due to the inherent limitations of voice recognition software.
Discharge Plan
Departure
Patient Disposition: Admit
Date of Disposition: 11/25/24
Time of Disposition: 22:20
Admit to: Med/Surg
Presentation/result/management discussed w/ accepting MD/DO: Hospitalist
Discharge Problem:
Acute kidney injury, Complete small bowel obstruction, Strangulated umbilical hernia
Interventions
Interventions:
*Risk Screen - Suicide Last Done: 11/25/24 13:09
*General Assessment Last Done: 11/25/24 17:38
*Neglect/Abuse Screening Last Done: 11/25/24 13:09
*ED COVID-19 Vaccine History Last Done: 11/25/24 17:38
UJ-Ijqrlm-Gnmkpvrgxl Assessment Last Done: 11/25/24 18:00
[2024-11-25] MEDS: LR 1000 IV (18:46)
[2024-11-25] MEDS: ZOFRAN 4 MG IV (18:47)
[2024-11-25] MEDS: LR 500 IV (20:29)
[2024-11-25] MEDS: DILAUDID 0.5 MG IV (21:56)
--- NOTE | 2024-11-25 22:58 | HPS.HSE ---
Family Physician
-
Family Physician: Diana Cowan
Chief Complaint
-
abdominal pain
History of Present Illness
74-year-old male past medical history of bilateral inguinal hernia repair several years ago, COPD, osteoarthritis, mild intermittent asthma, rheumatoid arthritis, presenting with lower abdominal pain and intractable nausea vomiting for the past 4
days. He lost 11 pounds. He is unable to tolerate any p.o. fluids. Denies any fevers or night sweats. He has not passed any stool or gas in the past 4 days.
He denies any prior history of bowel obstruction.
He denies chest pain. He denies shortness of breath is worse than his baseline.
Drinks alcohol occasionally. Denies smoking currently.
Medical History
Past Medical History
Past Medical History: Reports Other (bilateral inguinal hernia repair several years ago, COPD, osteoarthritis, mild intermittent asthma, rheumatoid arthritis)
Past Surgical History: Reports None
Social History
Tobacco: Non-smoker
Alcohol: Occasional
Drug: None
Family History
Family History: Not pertinent
Allergies / Home Medications
Allergies reflects when Allergies were last updated in [facility].
Home Medications with original date entered in [facility]
Allergy/Medication List:
Allergies
Allergy/AdvReac Type Severity Reaction Status Date / Time
diphenhydramine (From Allergy Severe Anaphylaxis, Verified 11/25/24 13:11
Benadryl) SOB,
Hallucinations
mold Allergy Anaphylaxis Verified 11/25/24 13:11
pollen extracts Allergy Nasal Verified 11/25/24 13:11
congestion,
Asthma
Sulfa (Sulfonamide Allergy Unknown Verified 11/25/24 13:11
Antibiotics)
Home Medications
albuterol sulfate 90 mcg/actuation aerosol inhaler (Ventolin HFA) 1 puff inhalation PRN PRN sob 10/08/20
montelukast 10 mg tablet 10 mg PO HS 10/08/20
famotidine 20 mg tablet (Pepcid AC) 20 mg PO DAILY 06/13/24
fexofenadine 180 mg tablet 180 mg PO HS 06/13/24
fluticasone fur. 200 mcg-umeclid 62.5 mcg-vilant 25 mcg inhalat.powder (Trelegy Ellipta) 1 inh inhalation QPM 06/13/24
ibuprofen 800 mg tablet 800 mg PO Q6H PRN pain 06/13/24
ipratropium 20 mcg-albuterol 100 mcg/actuation mist for inhalation (Combivent Respimat) 2 puff inhalation PRN PRN SOB, Wheeze 06/13/24
leflunomide 20 mg tablet 20 mg PO HS 06/13/24
meloxicam 15 mg tablet 15 mg PO DAILY 06/13/24
prednisone 5 mg tablet 7.5 mg PO DAILY 06/13/24
turmeric 1,000 mg PO BID 06/13/24
Review of Systems
-
Constitutional: Reports No Symptoms
EENT: Reports No Symptoms
Respiratory: Reports No Symptoms
Cardiac: Reports No Symptoms
Abdomen/GI: Reports No Symptoms
: Reports No Symptoms
Musculoskeletal: Reports No Symptoms
Skin: Reports No Symptoms
Neurological: Reports No Symptoms
Endocrine: Reports No Symptoms
Hematologic/Lymphatic: Reports No Symptoms
Psych: Reports No Symptoms
Physical Exam
Vital Signs
Vital Signs
Temp Pulse Resp BP Pulse Ox
98.7 F 86 18 170/100 98
11/25/24 17:47 11/25/24 20:15 11/25/24 20:15 11/25/24 20:00 11/25/24 18:20
Physical Exam
General: Well Developed, Well Nourished and No Apparent Distress
HEENT: NormoCephalic, Moist mucous membranes and Atraumatic
Respiratory: Clear
Cardiac: S1/S2 and Regular Rhythm; No Murmur or Rub
GI: Soft, Non Tender, Normal Bowel Sounds and Tender (periumbilically ); No Organomegaly
Rectal: Deferred by Provider
Musculoskeletal: No Clubbing, No Cyanosis and No Edema
Skin: No Rash
Neuro: Nonfocal/grossly intact
Laboratory Results
-
11/25/24 13:26
11/25/24 13:26
Laboratory Results
Lactic Acid 1.7 mmol/L (0.7-2.0) 11/25/24 18:49
Total Bilirubin 1.0 mg/dl (0.2-1.3) 11/25/24 13:26
AST 45 U/L (17-59) 11/25/24 13:26
ALT 62 U/L (0-50) H 11/25/24 13:26
Alkaline Phosphatase 58 U/L (38-126) 11/25/24 13:26
Data Reviewed
-
Lab Data: Labs Reviewed by me
Old Records: Reviewed
Impression/Plan
-
IMPRESSION:
PLAN:
# Small bowel obstruction
# History of bilateral inguinal hernia repair
-Umbilical hernia appears to be reduced
- CT scan shows small bowel obstruction with transition related to umbilical hernia, no bowel thickening or soft tissue stranding,
- N.p.o. including meds
- IV fluids
- Dilaudid, Zofran as needed
- General Surgery consult
# Acute kidney injury likely prerenal from GI loss
- IV fluids
History of bilateral inguinal hernia repair
COPD
- Continue albuterol, Trelegy Ellipta when able
- Continue montelukast when able
Osteoarthritis
Mild intermittent asthma
Rheumatoid arthritis
- Continue leflunomide, meloxicam, prednisone when able
DNR/DNI
DVT prophylaxis�heparin
N.p.o.
[2024-11-26] VITALS (15 sets, daily range): BP systolic 75–152; BP diastolic 59–104; BMI 23.4
[2024-11-26] MEDS: NSS 1000 IV ×4 (02:39→21:11)
[2024-11-26 06:00] LABS: Hematocrit 36.7 % (39.0-52.0); Hemoglobin 12.2 g/dL (13.0-18.0); Mean Corp Hgb Conc. 33.2 g/dL (33.0-37.0); Mean Corpuscular Volume 90.2 fL (80.0-94.0); Platelet Count 236 10^3/uL (130-400); Red Cell Dist. Width 15.4 % (11.5-14.5)
[2024-11-26 06:09] LABS: ALT (SGPT) 61 U/L (0-50); AST (SGOT) 34 U/L (17-59); Albumin 4.2 g/dl (3.5-5.0); Alkaline Phosphatase 46 U/L (38-126); Blood Urea Nitrogen 82 mg/dl (9-20); Calcium 9.1 mg/dl (8.4-10.2); Carbon Dioxide 22 mmol/L (22-30); Chloride 101 mmol/L (98-107); Estimated Creatinine Clearance 30 ml/min; Glucose 106 mg/dl (70-99); Potassium 4.1 mmol/L (3.5-5.1); Sodium 135 mmol/L (135-145); Total Protein 6.4 g/dl (6.3-8.2); eGFR 34.81
--- NOTE | 2024-11-26 08:11 | W.PN.HOSP.TC ---
Addendum entered and electronically signed by Wang Palomo MD 11/26/24 18:43:
Steroids should be continued perioperatively, surgery team will order.
Original Note:
Today's Communication/Plan
-
See plan
Assessment / Plan
Assessment / Plan
Physical Exam
General: Well Developed, Well Nourished and No Apparent Distress
HEENT: Normocephalic, Moist mucous membranes and Atraumatic
Respiratory: Clear
Cardiac: S1/S2 and Regular Rhythm
GI: Soft, Non Tender, Normal Bowel Sounds and Tender (periumbilically ); Hernia.
Musculoskeletal: No Cyanosis and No Edema
Skin: Warm. Dry.
Neuro: Nonfocal/grossly intact
Assessment/Plan
74-year-old male past medical history of bilateral inguinal hernia repair several years ago, COPD, osteoarthritis, mild intermittent asthma, rheumatoid arthritis, presenting with lower abdominal pain and intractable nausea vomiting for the past 4
days. He lost 11 pounds. He is unable to tolerate any p.o. fluids. Denies any fevers or night sweats. He has not passed any stool or gas in the past 4 days. He denies any prior history of bowel obstruction. He denies chest pain. He denies
shortness of breath is worse than his baseline. Drinks alcohol occasionally. Denies smoking currently.
# Small bowel obstruction
# History of bilateral inguinal hernia repair
-Umbilical hernia appears to be reduced
- CT scan shows small bowel obstruction with transition related to umbilical hernia, no bowel thickening or soft tissue stranding,
- N.p.o. including meds -- can have sips of clears
- IV fluids
- Dilaudid, Zofran as needed
- General Surgery consult -- surgery tomorrow
#Fever, concern for sepsis with fever+bandemia
-IV fluids provided
-Continue Zosyn
-Follow blood cultures
-Appreciate ID
# Acute kidney injury likely prerenal from GI loss and reduced PO intake over ~4 days prior to arrival
- IV fluids
History of bilateral inguinal hernia repair
COPD
- Continue albuterol, Trelegy Ellipta when able
- Continue montelukast when able
Osteoarthritis
Mild intermittent asthma
Rheumatoid arthritis
- Continue leflunomide, meloxicam, prednisone when able -- will consider resuming Dexamethasone 1 mg daily -- surgery team will order steroids if needed from their standpoint (confirmed with Dr. Modi)
- Given patient's symptoms, his last Prednisone dose was on the morning of 11/22/24
DNR/DNI
DVT prophylaxis�heparin
N.p.o.
Patient's cousin was present in patient's room at the time of encounter. All questions and concerns were answered to satisfaction.
Anticipated Discharge: > 48 hours
Subjective/Interval History
-
Date of Service: November 26, 2024
Patient was seen and examined. He reported feeling very hungry, reported some abdominal pain.
Objective Data
-
Labs:
Laboratory Results
11/26/24
05:31
WBC 5.0
Hgb 12.2 L
Hct 36.7 L
Plt Count 236
Sodium 135
Potassium 4.1
Chloride 101
Carbon Dioxide 22
BUN 82 H
Creatinine 2.0 H
Glucose 106 H
Calcium 9.1
Total Bilirubin 0.9
AST 34
ALT 61 H
Alkaline Phosphatase 46
Vital Signs:
Vital Signs
Temp Pulse Resp BP Pulse Ox
98.7 F 81 18 134/84 98
11/26/24 08:01 11/26/24 08:01 11/26/24 08:01 11/26/24 08:01 11/25/24 18:20
[2024-11-26] MEDS: HEPARIN 5000 UNITS SC ×2 (08:22→19:38)
[2024-11-26 09:04] LABS: Absolute Neutrophils -Man Diff 3.7 10^3/uL (1.4-6.5)
[2024-11-26 09:06] LABS: Anisocytosis 1+; Normal RBC Morphology No; Platelets Checked Yes
[2024-11-26 09:07] LABS: Hypochromasia Slight; Total Cells Counted 100
--- NOTE | 2024-11-26 09:36 | CON.GS ---
Addendum entered and electronically signed by Marvel Modi MD 11/26/24 12:56:
Patient seen and examined.
Patient is a 74 yo M with a PMH of cervical radiculopathy, asthma, COPD, s/p robotic LEFT inguinal hernia repair with mesh in 2018 and RIGHT inguinal hernia repair with [place] [address] Charles Adhikari, and s/p LEFT rotator cuff repair in 2024 who
presents to the hospital with umbilical discomfort. Mr. Ríos states that he has had a known umbilical hernia for years. This past he was lifting a heavy door when he noticed increased protrusion and discomfort. Associated nausea
and vomiting. Persistent discomfort prompted presentation to the ER. Diarrhea just prior to presentation to the ED. This hernia was reduced in the ED. Currently he feels improved with some mild discomfort around his umbilicus. No nausea or
vomiting. Continues to pass flatus and stools. No fevers or chills.
Gen: NAD
Abd: soft, mild tenderness around umbilicus, faint bruising and erythema related to reduction, hernia reducible, abdomen otherwise soft and NT, ND, non-peritoneal
Labs and CT scan were reviewed.
Patient is a 74 yo M p/w symptomatic umbilical hernia with episode of incarceration
The natural history and pathophysiology of abdominal wall hernias was discussed. CT scan imaging was reviewed. Options for management were reviewed. Given the severity of his episode and symptomatic nature recommend operative repair. Options for
surgical repair including both open and MIS were considered and discussed. The pros and cons of both approaches was discussed. Specifically, we discussed postoperative pain/discomfort, risk of wound complications, inability to assess reduced bowel.
Plan for a robotic umbilical hernia repair with possible mesh. The procedure itself, as well as the risks, benefits, and alternatives was discussed. Specifically, we discussed the risks of bleeding, infection, injury to surrounding structures
(bowel), wound complications, and recurrence. Typical postprocedural coverage including pain management and the need for 4 weeks no heavy lifting or strenuous activities was discussed. All questions answered.
-- Robotic umbilical hernia repair with possible mesh (added to our schedule tomorrow)
-- NPO with sips for comfort
-- Pain and nausea control as needed
Original Note:
Consultation
-
Date/Time Consultation Requested: 11/26/24
Date/Time Consultation Performed: 11/26/24 9:45 AM
Requesting Provider: Janet Wall
Performing Provider: Marvel Vann
Reason for Consultation: Umbilical Hernia
Medical History
-
History of Present Illness:
74 yrs old M with k/c/o prior right side inguinal hernia repair [address] ([address] Adhikari), and left side hernial repair (unknown) , COPD, OA arrived to the ER because of belly button buldge which was there few years ago, and it started to 'pop out'
suddenly enlarge on after lifting heavy door, it started to protrude and huge, with pain, felt hard mass,not reduced spontaneously or by manual.
The patient ended to ER because of abdominal pain, and feeling discomfort , pain while on standing, walking, associated with nausea, vomiting (because of vomiting patient didn't had any food from ). He had diarrhea for continuously 1 hour
after arriving to ER, the patient was given IV opioids and placed in the Trendelenburg position with an ice pack over the abdomen for approximately 15 minutes before gentle hernial reduction. He denies fever, chills, recent direct trauma at the
affected side.
Past Medical History
Past Medical History: Asthma, COPD (prednisone he is taking. ) and Other (Cervical radiculopathy )
Past Surgical History: Hernia Repair (right side inguinal hernia on 2020(by Dr Adhikari), left side inguinal repair(unknown), complete shoulder repair (06/2024))
Social History
Tobacco: Non-Smoker
Alcohol: Occasional
Drug: None
Family History
Family History: Reviewed & Not Pertinent
Allergies / Home Medications
Allergy/AdvReac Type Severity Reaction Status Date / Time
diphenhydramine (From Allergy Severe Anaphylaxis, Verified 11/25/24 13:11
Benadryl) SOB,
Hallucinations
mold Allergy Anaphylaxis Verified 11/25/24 13:11
pollen extracts Allergy Nasal Verified 11/25/24 13:11
congestion,
Asthma
Sulfa (Sulfonamide Allergy Unknown Verified 11/25/24 13:11
Antibiotics)
�Medication �Instructions �Recorded �Confirmed �Type
albuterol sulfate 90 mcg/actuation 1 puff inhalation PRN PRN sob 10/08/20 06/20/24 History
aerosol inhaler (Ventolin HFA)
montelukast 10 mg tablet 10 mg PO HS 10/08/20 06/20/24 History
famotidine 20 mg tablet (Pepcid AC) 20 mg PO DAILY 06/13/24 06/20/24 History
fexofenadine 180 mg tablet 180 mg PO HS 06/13/24 06/20/24 History
fluticasone fur. 200 mcg-umeclid 1 inh inhalation QPM 06/13/24 06/20/24 History
62.5 mcg-vilant 25 mcg
inhalat.powder (Trelegy Ellipta)
ibuprofen 800 mg tablet 800 mg PO Q6H PRN pain 06/13/24 06/20/24 History
ipratropium 20 mcg-albuterol 100 2 puff inhalation PRN PRN SOB, 06/13/24 06/20/24 History
mcg/actuation mist for inhalation Wheeze
(Combivent Respimat)
leflunomide 20 mg tablet 20 mg PO HS 06/13/24 06/20/24 History
meloxicam 15 mg tablet 15 mg PO DAILY 06/13/24 06/20/24 History
prednisone 5 mg tablet 7.5 mg PO DAILY 06/13/24 06/20/24 History
turmeric 1,000 mg PO BID 06/13/24 06/20/24 History
Review of Systems
-
History Source: Patient
Constitutional: No Symptoms
Respiratory: Cough (intermittent)
Cardiac: No Symptoms
Abdomen/GI: Abdominal Pain (umbilical pain), Nausea, Vomiting (more than 10 episodes after umbilical buldge. ), Diarrhea (after admitted to ER ) and Pain
: No Symptoms
Musculoskeletal: No Symptoms
Skin: No Symptoms
Neurological: No Symptoms
Hematologic/Lymphatic: No Symptoms
A 10 point review of systems was completed, and was negative except as per HPI.
Physical Exam
Vital Signs
Temp Pulse Resp BP Pulse Ox
98.7 F 81 18 134/84 98
11/26/24 08:01 11/26/24 08:01 11/26/24 08:01 11/26/24 08:01 11/25/24 18:20
11/25/24 11/26/24 11/27/24
06:59 06:59 06:59
Actual Weight 64.5 kg
Body Mass Index (BMI) 23.0
Lab Results
11/26/24 05:31
11/26/24 05:31
WBC 5.0 10^3/uL (4.8-10.8) 11/26/24 05:31
Hgb 12.2 g/dL (13.0-18.0) L 11/26/24 05:31
Hct 36.7 % (39.0-52.0) L 11/26/24 05:31
Plt Count 236 10^3/uL (130-400) 11/26/24 05:31
Abs Immat Gran (auto) 0.0 10^3/uL (0-0.05) 11/25/24 13:26
Neutrophils % 86.3 % (42.2-75.2) H 11/25/24 13:26
Physical Exam
General: Other (mild distress because of pain. )
HEENT: Moist Mucous Membranes
Respiratory: Clear
Cardiac: S1/S2 and Regular Rhythm
GI: Soft, Non Distended, Tender and Other (erythema, tender, mild buldge at umbilical region. )
Genito-urinary: Inguinal Hernia (hernial repair.)
Musculoskeletal: No Clubbing
Skin: Warm
Neuro: AO x 3
Psych: Calm
Assessment / Plan
-
74 yrs M with k/h/o Right side inguinal hernia repair, COPD, OA presented with umbilical region buldge.
# Abdominal pain secondary to Non Obstructive Umbilical hernia:
Afebrile, WBC COUNT= 5.0 (N)
Umbilical hernia reduced in the ER today and patient currently on hydromorphone.
CT Scan Impression on 11/25/24:
Bowel: There is diffuse fluid distention of the small bowel measuring up to 4 cm. Transition appears to be associated with a short segment of small bowel herniation at the umbilicus, where there is a 1.7 cm defect of the base of the umbilicus, and a
3 cm hernia sac. No bowel wall thickening. No soft tissue stranding. No evidence of pneumatosis. There is associated moderate to large fluid distention of the stomach. The colon is relatively collapsed. Sigmoid diverticulosis without acute
diverticulitis. Few diverticula of the ascending colon.
Small bowel obstruction with transition related to umbilical hernia, as described. No bowel thickening or soft tissue stranding. No evidence of pneumatosis. No perforation.
--NPO for the surgery
-- Continue IV fluids
--Continue Dilaudid, Zofran as needed
-- Planned for the surgery tomorrow.
# Acute kidney injury likely prerenal from GI loss
- IV fluids
- creatinine = 2 (H)
- BUN= 82 (H)
#History of bilateral inguinal hernia repair
#COPD
- Continue albuterol, Trelegy Ellipta when able
- Continue montelukast when able to take by orally.
- Hold prednisone for the surgery (because prednisone delays the healing process of the wound)
#Osteoarthritis
#Mild intermittent asthma
# Rheumatoid arthritis
- Continue leflunomide, meloxicam after the surgery
DVT prophylaxis: Heparin sc
Code: DNR
[2024-11-26] MEDS: DILAUDID 0.5 MG IV ×2 (13:19→19:37)
[2024-11-26] MEDS: DUONEB 3 ML INH (16:17)
[2024-11-26] MEDS: ZOSYN 50 IV ×2 (16:36→21:14)
[2024-11-26] MEDS: TYLENOL 650 MG PO (16:51)
--- NOTE | 2024-11-26 17:32 | CON.ID ---
Consultation
-
Date/Time Consultation Requested: 11/26/2024 1526
Date/Time Consultation Performed: 11/26/2024 1555
Requesting Provider: Dr. Palomo
Performing Provider: Dr. Evans
Reason for Consultation: Fever
Chief Complaint / Past History
History of Present Illness
Charles Ríos is a 74-year-old man being evaluated at the request of Dr. Palomo regarding fever. History is obtained from chart review, along with patient interview.
The patient has a history of an umbilical hernia, and notes he was in his usual state of health until approximately 4 days ago when he was renovating a house and he moved a heavy door. The next day he reports he had significant abdominal
distention, and his abdomen was 'hard as a rock'. He also notes that he could not eat and had significant nausea and vomiting. Ultimately he came to the emergency room where he developed fevers and chills. Workup of the abdomen revealed an
incarcerated hernia, which was reduced in the ER.
At this time, he continues to have abdominal discomfort. He denies fevers or chills prior to admission, but developed them once here. He also notes diarrhea several times today. Infectious Diseases is asked to comment upon further antimicrobial
therapy.
Past History
Additional Past Medical History:
COPD
Osteoarthritis
Asthma
Rheumatoid arthritis
Additional Past Surgical History:
Bilateral inguinal hernia repair
Allergy History:
diphenhydramine (From Benadryl) Allergy (Severe, Verified 11/25/24 13:11)
Anaphylaxis, SOB, Hallucinations
mold Allergy (Verified 11/25/24 13:11)
Anaphylaxis
pollen extracts Allergy (Verified 11/25/24 13:11)
Nasal congestion, Asthma
Sulfa (Sulfonamide Antibiotics) Allergy (Verified 11/25/24 13:11)
Unknown
Medications Reviewed: Yes
Current Antibiotics:
Zosyn 2.25 gm IV q.6 hours
Social History
Tobacco: Non-Smoker
Alcohol: None
Drug: None
Employment: Employed
Family History
Family History: Not Pertinent
Review of Systems
Vital Signs
Temp Pulse Resp BP Pulse Ox
100.5 F H 105 27 114/70 92
11/26/24 16:51 11/26/24 16:30 11/26/24 16:30 11/26/24 16:28 11/26/24 16:20
Physical Exam
Physical Exam
Constitutional: No Acute Distress
Eyes: No Conjunctival Hemorrhage and Sclera Anicteric
Oral: No Thrush and No Ulcers
Cardiovascular: S1/S2; Negative S3/S4
Pulmonary: Clear; Negative Wheezes, Rales or Rhonchi
Gastrointestinal: Soft, Tender, Non Distended, Normal Bowel Sounds, No Rebound and No Guarding
Extremities: Negative Edema, Cyanosis or Erythema
Neurological: Awake and Alert
Psychological: Calm
Lab / Diagnostic Study Results
11/26/24 05:31
11/26/24 05:31
Abs Immat Gran (auto) 0.0 10^3/uL (0-0.05) 11/25/24 13:26
Absolute Neuts (auto) 5.3 10^3/uL (1.4-6.5) 11/25/24 13:26
Absolute Lymphs (auto) 0.4 10^3/uL (1.2-3.4) L 11/25/24 13:26
Absolute Monos (auto) 0.4 10^3/uL (0.1-0.6) 11/25/24 13:26
Absolute Basos (auto) 0.0 10^3/uL (0-0.2) 11/25/24 13:26
Total Counted 100 11/26/24 05:31
Immature Gran % 0.3 % (0-0.5) 11/25/24 13:26
Neutrophils % 86.3 % (42.2-75.2) H 07/28/25 13:26
Lymphocytes % 6.5 % (20.5-51.1) L 11/25/24 13:26
Monocytes % 6.4 % (1.7-9.3) 11/25/24 13:26
Eosinophils % 0.0 % (0-6) 11/25/24 13:26
Basophils % 0.5 % (0-2) 11/25/24 13:26
Abs Neuts (Manual) 3.7 10^3/uL (1.4-6.5) 11/26/24 05:31
Segmented Neutrophils 31 % (42-75) L 11/26/24 05:31
Band Neutrophils 44 % (0-3) H 11/26/24 05:31
Lymphocytes (Manual) 16 % (20-51) L 11/26/24 05:31
Lactic Acid 1.7 mmol/L (0.7-2.0) 11/25/24 18:49
Microbiology Results
Micro:
11/26/24 16:28 Blood Culture - Pending
Blood/Venous
11/26/24 16:28 Blood Culture - Pending
Blood/Venous
Imaging:
11/25/2024 CT abdomen/pelvis with IV contrast: there is diffuse fluid distention of the small bowel measuring up to 4 cm. Transition appears to be associated with a short segment of small bowel herniation at the umbilicus, where there is a 1.7 cm
defect of the base of the umbilicus and a 3 cm hernia sac. No bowel wall thickening. No soft tissue stranding. No evidence for pneumatosis. There is associated moderate to large fluid distention of the stomach. Colon is relatively collapsed.
Sigmoid diverticulosis without acute diverticulitis is noted. Please see full dictation for additional detail.
Assessment / Plan
Incarcerated umbilical hernia
- Reduced in ER
Fevers
Normal white count with significant left shift
SALAZAR
Elevated ALT
COPD
Osteoarthritis
Asthma
Rheumatoid arthritis
Recommendations:
Continue with empiric Zosyn, increase to 3.375 gm IV q.6 hours
Blood cultures have been obtained. Will continue to monitor.
Follow white count and temperature curve.
Patient for tentative hernia repair tomorrow.
--- NOTE | 2024-11-26 18:20 | CM ---
CM reviewed chart and met with pt bedside in ED. Lives alone, 1 story apartment, no BOBBI.
Independent in ADLs, personal care and ambulation at baseline. Does have can and walker in home if needed but does not use on daily basis.
Pt is scheduled for hernia repair surgery tomorrow.
Hx VN but unsure of agency, no hx SNF.
PCP: Diana Cowan
Pharmacy: [facility]
Anticipate DC home, watch for needs.
--- NOTE | 2024-11-26 18:45 | PTCARENOTE ---
Patient received from ED. CRIS PINEDA. Patient was able to ambulate to room bed, weight obtained via standing scale. Admission questions done prior to arrival to floor. Oriented to room. For OR in AM. Call loving in reach.
[2024-11-26] MEDS: SYMBICORT 160/4.5 MCG INHALER 2 PUFF INH (19:41)
--- NOTE | 2024-11-26 20:14 | PTCARENOTE ---
Patient c/o 10/08 abd pain that is increasing, requested pain medication. abd round/soft. +BS in all 4 quadrants. umbilical area red. non-tender upon palp. prn dilaudid provided. pt now hypotensive SBP 70-80s. RAMON Hand aware. awaiting orders. Pt
states he feels ok just tired. HR 90s.
[2024-11-26] MEDS: SOLU-CORTEF 100 MG IV (22:36)
[2024-11-27] VITALS (29 sets, daily range): BP systolic 102–143; BP diastolic 73–111
[2024-11-27] MEDS: NSS 1000 IV (00:39)
[2024-11-27] MEDS: ZOFRAN 4 MG IV ×2 (00:39→08:47)
[2024-11-27 01:49] LABS: Blood Urea Nitrogen 71 mg/dl (9-20); Calcium 8.1 mg/dl (8.4-10.2); Carbon Dioxide 22 mmol/L (22-30); Chloride 105 mmol/L (98-107); Estimated Creatinine Clearance 35 ml/min; Glucose 118 mg/dl (70-99); Potassium 4.3 mmol/L (3.5-5.1); Sodium 137 mmol/L (135-145); eGFR 42.30
[2024-11-27] MEDS: ZOSYN 50 IV ×4 (04:03→21:19)
[2024-11-27 04:24] LABS: Urine Character Clear (Clear)
--- NOTE | 2024-11-27 04:32 | PTCARENOTE ---
Patient having diarrhea with episodes of incontinence. reports mild nausea that is intermittent. one episode of small amt emesis. prn zofran provided. UA sent. pt assisted to bsc, bed pad and gown changed. provided jatin wipes. pt thankful for care.
reports chronic back pain, repositioned on side with pillows for relief.
[2024-11-27 04:34] LABS: Urine Red Blood Cell 0-2 /HPF (0-2); Urine White Cell 0-2 /HPF (0-5)
[2024-11-27] MEDS: SOLU-CORTEF 50 MG IV ×2 (06:29→17:43)
[2024-11-27 07:16] LABS: ALT (SGPT) 40 U/L (0-50); AST (SGOT) 21 U/L (17-59); Albumin 3.8 g/dl (3.5-5.0); Alkaline Phosphatase 42 U/L (38-126); Blood Urea Nitrogen 64 mg/dl (9-20); Calcium 8.0 mg/dl (8.4-10.2); Carbon Dioxide 21 mmol/L (22-30); Chloride 107 mmol/L (98-107); Estimated Creatinine Clearance 38 ml/min; Glucose 120 mg/dl (70-99); Magnesium 1.9 mg/dl (1.6-2.3); Potassium 4.0 mmol/L (3.5-5.1); Sodium 138 mmol/L (135-145); Total Protein 6.0 g/dl (6.3-8.2); eGFR 45.50
[2024-11-27] MEDS: SYMBICORT 160/4.5 MCG INHALER 2 PUFF INH ×2 (07:43→19:56)
[2024-11-27] MEDS: SPIRIVA RESPIMAT 2.5 MCG 2 PUFF INH (07:43)
[2024-11-27 08:01] LABS: Hematocrit 38.3 % (39.0-52.0); Hemoglobin 12.3 g/dL (13.0-18.0); Mean Corp Hgb Conc. 32.1 g/dL (33.0-37.0); Mean Corpuscular Volume 91.4 fL (80.0-94.0); Platelet Count 222 10^3/uL (130-400); Red Cell Dist. Width 14.9 % (11.5-14.5)
[2024-11-27] MEDS: DILAUDID 0.5 MG IV ×3 (08:47→22:44)
[2024-11-27] MEDS: HEPARIN 5000 UNITS SC ×2 (08:47→21:19)
[2024-11-27] MEDS: LR 1000 IV ×2 (08:50→22:52)
[2024-11-27 09:04] LABS: Absolute Neutrophils -Man Diff 6.3 10^3/uL (1.4-6.5); Platelets Checked Yes
[2024-11-27 09:06] LABS: Acanthocytes Slight; Anisocytosis 1+; Normal RBC Morphology No; Ovalocytes Slight; Total Cells Counted 100
--- NOTE | 2024-11-27 10:30 | PTCARENOTE ---
Assumed care of patient at 0645. Assessment completed and documented in shift assessment on worklist.
Patient here with umbilical hernia and small bowel obstruction. Awaiting OR today for surgical intervention.
--- NOTE | 2024-11-27 10:49 | W.PN.GS2 ---
Today's Communication / Plan
-
-- Robotic possible open umbilical hernia repair with possible mesh possible bowel resection
Assessment / Plan
-
Patient is a 74 yo M p/w incarcerated nonreducible umbilical hernia with associated bowel obstruction
Febrile yesterday, soft BPs, currently stable and improved
WBC remains normal, creatinine trending down
Plan for a robotic possible open umbilical hernia repair with possible mesh possible bowel resection. The procedure itself, as well as the risks, benefits, and alternatives was discussed. Specifically, we discussed the risks of bleeding,
infection, injury to surrounding structures (bowel), wound complications, recurrence, and general anesthetic complications as a relates to a pulmonary standpoint. Typical postprocedural coverage was discussed. All questions answered. Consent
signed.
-- Robotic possible open umbilical hernia repair with possible mesh possible bowel resection
-- Abx: Zosyn
-- NPO, IVF
Subjective Data
-
Date of Service: November 27, 2024
Reports of continued abdominal soreness. No nausea or vomiting. Continues to pass flatus and loose stools. Fevers noted yesterday.
Objective Data
-
Intake and Output
11/26/24 11/27/24 11/28/24
06:59 06:59 06:59
Intake Total 1350 / 1350
Output Total 150 / 150
Balance 1200 / 1200
Intake:
Oral fluids 200 / 200
IV fluids (Total) 1000 / 1000
IV piggybacks 150 / 150
Output:
Urine, Voided 150 / 150
Other:
Number of approximated SMALL 1
amounts of urine
Number of approximated MODERATE 4
amounts of urine
Number of immeasurable emeses? 1
Vital Signs
Temp Pulse Resp BP Pulse Ox
98.1 F 97 19 136/84 98
11/27/24 03:09 11/27/24 08:08 11/27/24 08:08 11/27/24 08:08 11/27/24 07:46
Lab Results
11/27/24 06:45
11/27/24 06:45
Calcium 8.0 mg/dl (8.4-10.2) L 11/27/24 06:45
Magnesium 1.9 mg/dl (1.6-2.3) 11/27/24 06:45
Total Bilirubin 0.9 mg/dl (0.2-1.3) 11/27/24 06:45
AST 21 U/L (17-59) 11/27/24 06:45
ALT 40 U/L (0-50) 11/27/24 06:45
Alkaline Phosphatase 42 U/L (38-126) 11/27/24 06:45
Total Protein 6.0 g/dl (6.3-8.2) L 11/27/24 06:45
Albumin 3.8 g/dl (3.5-5.0) 11/27/24 06:45
Physical Exam
-
Gen: NAD
Abd: soft, mild tenderness, mild distension, no rebound or guarding
Patient has a ceballos catheter: No
Patient has a central line: No
--- NOTE | 2024-11-27 10:53 | W.SUR.PREOP ---
Pre-Operative Surgical Note
-
I have examined this patient prior to the performance of the scheduled procedure.
The patient's condition is unchanged from the time of the current History and
Physical and the patient is able to undergo the scheduled procedure.
[2024-11-27] MEDS: SOLU-CORTEF IV (12:16)
--- NOTE | 2024-11-27 13:26 | W.IMMPOSTOP ---
Surgical Immed Post Op Note
-
Primary Surgeon: Rian
Assisting Surgeon: None
Pre-op Diagnosis: Incarcerated umbilical hernia
Post-op Diagnosis: Incarcerated umbilical hernia
Procedure Performed: Robotic umbilical hernia repair with mesh
Anesthesia Type: General
Specimen / Cultures: None
Estimated Blood Loss: 3 cc
Complications: None
Operative Findings:
1. Dilated small bowel and stomach, unable to pass NGT or OGT after multiple attempts
2. Small bowel run from TI to LT, area of prior incarceration identified and viable, no significant stricturing, dilation upstream from this point, no resection performed
3. Facial defect 1.5 cm, Bard soft pre-peritoneal 7.5 x 10 cm mesh
--- NOTE | 2024-11-27 15:00 | PTCARENOTE ---
Received patient from PACU. Patient s/p robotic umbilical hernia repair with mesh. Sore throat otherwise no pain at the moment. Indwelling ceballos draining straw/yellow urine. 4 Lap Sites + Umbilical Incision CDI.
--- NOTE | 2024-11-27 15:30 | W.PN.HOSP.TC ---
Today's Communication/Plan
-
Surgery today
Continue IV Hydrocortisone which was started in the setting of possible infection, hernia and pain, patient's hypotension on 11/27/24 and chronic Prednisone use
Continue antibiotics and IV fluids
Continue to monitor in IMU
Assessment / Plan
Assessment / Plan
Physical Exam
General: Well Developed, Well Nourished and No Apparent Distress
HEENT: Normocephalic, Moist mucous membranes and Atraumatic
Respiratory: Clear
Cardiac: S1/S2 and Regular Rhythm
GI: Soft, Normal Bowel Sounds and Tender (periumbilically ); Hernia.
Musculoskeletal: No Cyanosis and No Edema
Skin: Warm. Dry.
Neuro: Nonfocal/grossly intact
Assessment/Plan
74-year-old male past medical history of bilateral inguinal hernia repair several years ago, COPD, osteoarthritis, mild intermittent asthma, rheumatoid arthritis, presenting with lower abdominal pain and intractable nausea vomiting for the past 4
days. He lost 11 pounds. He is unable to tolerate any p.o. fluids. Denies any fevers or night sweats. He has not passed any stool or gas in the past 4 days. He denies any prior history of bowel obstruction. He denies chest pain. He denies
shortness of breath is worse than his baseline. Drinks alcohol occasionally. Denies smoking currently.
# Small bowel obstruction status post robotic umbilical hernia repair with mesh on 11/27/24 for incarcerated umbilical hernia
- Surgery today
- CT scan shows small bowel obstruction with transition related to umbilical hernia, no bowel thickening or soft tissue stranding,
- Diet post-op as per Surgery team
- IV fluids
- Dilaudid, Zofran as needed
- General Surgery consult appreciated
#Fever, concern for sepsis with fever+bandemia
-IV fluids provided
-Continue Zosyn
-Follow blood cultures
-Appreciate ID
# Acute kidney injury likely prerenal from GI loss and reduced PO intake over ~4 days prior to arrival
- Improving
- Continue IV fluids
History of bilateral inguinal hernia repair
COPD
- Continue albuterol, Trelegy Ellipta when able
- Continue montelukast when able
Osteoarthritis
Mild intermittent asthma
Rheumatoid arthritis
- Continue leflunomide, meloxicam, prednisone when able -- I started stress dose steroids on 11/27/24 given patient's significant hypotension with significant improvement in his blood pressure
- Given patient's symptoms, his last Prednisone dose was on the morning of 11/22/24
DNR/DNI
DVT prophylaxis�heparin
Anticipated Discharge: > 48 hours
Subjective/Interval History
-
Date of Service: November 27, 2024
Patient was seen and examined. He reported feeling okay this morning.
Objective Data
-
Labs:
Laboratory Results
11/27/24
06:45
WBC 7.4
Hgb 12.3 L
Hct 38.3 L
Plt Count 222
Sodium 138
Potassium 4.0
Chloride 107
Carbon Dioxide 21 L
BUN 64 H
Creatinine 1.6 H
Glucose 120 H
Calcium 8.0 L
Total Bilirubin 0.9
AST 21
ALT 40
Alkaline Phosphatase 42
Vital Signs:
Vital Signs
Temp Pulse Resp BP Pulse Ox
97.8 F 85 16 131/90 92
11/27/24 13:47 11/27/24 15:00 11/27/24 15:00 11/27/24 15:00 11/27/24 14:30
I&O
11/26/24 11/27/24 11/28/24
06:59 06:59 06:59
Intake Total 1350 / 1350
Output Total 150 / 150
Balance 1200 / 1200
--- NOTE | 2024-11-27 15:32 | W.PN.ID1 ---
Date of Service
Date of Service: November 27, 2024
Today's Communication
Continue antibiotics.
Assessment / Plan
Incarcerated umbilical hernia
- Reduced in ER
- s/p OR repair
Fevers
Normal white count with significant left shift
SALAZAR
Elevated ALT
COPD
Osteoarthritis
Asthma
Rheumatoid arthritis
Recommendations:
Continue with empiric Zosyn, increase to 3.375 gm IV q.6 hours
Blood cultures have been obtained. Will continue to monitor.
Follow white count and temperature curve.
Patient for tentative hernia repair tomorrow.
Chief Complaint
-: Other (Incarcerated hernia)
Subjective / Review of Systems
Patient seen and examined. Status post OR for robotic umbilical hernia repair with mesh placement.
Vital Signs / Physical Exam
Vital Signs
Vital Signs
Temp Pulse Resp BP Pulse Ox
97.8 F 85 16 131/90 92
11/27/24 13:47 11/27/24 15:00 11/27/24 15:00 11/27/24 15:00 11/27/24 14:30
Physical Exam
Constitutional: Comfortable and Non-toxic
Cardiovascular: S1/S2; Negative S3/S4
Pulmonary: Non Labored
Gastrointestinal: Soft
Extremities: Negative Edema, Cyanosis or Erythema
Neurological: Other (Arousable)
Objective Data
Lab Data
Lab Results
11/27/24 06:45
11/27/24 06:45
Estimated Creat Clear 38 ml/min 11/27/24 06:45
Lactic Acid 1.7 mmol/L (0.7-2.0) 11/25/24 18:49
Total Bilirubin 0.9 mg/dl (0.2-1.3) 11/27/24 06:45
AST 21 U/L (17-59) 11/27/24 06:45
ALT 40 U/L (0-50) 11/27/24 06:45
Alkaline Phosphatase 42 U/L (38-126) 11/27/24 06:45
Most recent labs reviewed.
Micro Results:
11/27/24 03:41 Urine Culture - Pending
Urine
11/26/24 16:28 Blood Culture - Pending
Blood/Venous
11/26/24 16:28 Blood Culture - Pending
Blood/Venous
Imaging:
11/25/2024 CT abdomen/pelvis with IV contrast: there is diffuse fluid distention of the small bowel measuring up to 4 cm. Transition appears to be associated with a short segment of small bowel herniation at the umbilicus, where there is a 1.7 cm
defect of the base of the umbilicus and a 3 cm hernia sac. No bowel wall thickening. No soft tissue stranding. No evidence for pneumatosis. There is associated moderate to large fluid distention of the stomach. Colon is relatively collapsed.
Sigmoid diverticulosis without acute diverticulitis is noted. Please see full dictation for additional detail.
[2024-11-27] MEDS: LR IV (15:41)
[2024-11-27] MEDS: ANESTHETIC LOZENGE 1 LOZENGE PO ×2 (18:13→22:42)
--- NOTE | 2024-11-27 22:50 | PTCARENOTE ---
Pt is awake and alert, answering all orientation questions. communicating pain. c/o abdominal pain, see MAR for full pain assessment and medications administered per orders. pt c/o dry mouth, mouth care implemented. ceballos present draining yellow
urine. ice pack applied to abdomen. assessment as documented. call light in reach.
[2024-11-28] VITALS (9 sets, daily range): BP systolic 100–161; BP diastolic 79–100; BMI 23.4; BMI 24.5
[2024-11-28] MEDS: SOLU-CORTEF 50 MG IV ×4 (01:50→20:36)
[2024-11-28] MEDS: ANESTHETIC LOZENGE 1 LOZENGE PO ×5 (03:04→20:35)
[2024-11-28] MEDS: DILAUDID 0.5 MG IV ×5 (03:04→20:35)
[2024-11-28] MEDS: ZOSYN 50 IV ×2 (05:23→10:57)
[2024-11-28 05:56] LABS: Hematocrit 31.1 % (39.0-52.0); Hemoglobin 10.1 g/dL (13.0-18.0); Mean Corp Hgb Conc. 32.5 g/dL (33.0-37.0); Mean Corpuscular Volume 91.7 fL (80.0-94.0); Platelet Count 191 10^3/uL (130-400); Red Cell Dist. Width 15.1 % (11.5-14.5)
[2024-11-28] MEDS: SYMBICORT 160/4.5 MCG INHALER 2 PUFF INH ×2 (06:08→19:53)
[2024-11-28] MEDS: SPIRIVA RESPIMAT 2.5 MCG 2 PUFF INH (06:08)
[2024-11-28 06:19] LABS: ALT (SGPT) 27 U/L (0-50); AST (SGOT) 17 U/L (17-59); Albumin 3.0 g/dl (3.5-5.0); Alkaline Phosphatase 39 U/L (38-126); Blood Urea Nitrogen 47 mg/dl (9-20); Calcium 7.0 mg/dl (8.4-10.2); Carbon Dioxide 20 mmol/L (22-30); Chloride 110 mmol/L (98-107); Estimated Creatinine Clearance 50 ml/min; Glucose 102 mg/dl (70-99); Potassium 3.5 mmol/L (3.5-5.1); Sodium 140 mmol/L (135-145); Total Protein 4.9 g/dl (6.3-8.2); eGFR > 60.00
--- NOTE | 2024-11-28 07:04 | W.PN.GS2 ---
Today's Communication / Plan
-
-- NPO, IVF, awaiting consistent ROBF
-- OOB/ambulate, IS
-- Would resume home steroids at IV equivalent
Assessment / Plan
-
Patient is a 74 yo M p/w incarcerated nonreducible umbilical hernia with associated bowel obstruction
POD#1 s/p RAL umbilical hernia repair with mesh
AVSS
WBC remains normal, creatinine trending down
No major concerns from surgical perspective. Expect post-op ileus, will need to await consistent ROBF prior to dietary advancement. Needs close monitoring from a pulmonary perspective.
-- NPO, IVF
-- Pain control: Tylenol, Dilaudid, holding on NSAIDs given Cr issues (may resume in the next day or two if Cr normalizes)
-- OOB/ambulate, IS
-- Would resume home steroids at IV equivalent
--Abx per ID
-- GI: PPI
-- DVT: SQH
Subjective Data
-
Date of Service: November 28, 2024
Pain overall well controlled. No nausea or emesis. No flatus or BM post-op. No fevers.
Objective Data
-
Intake and Output
11/27/24 11/28/24 11/29/24
06:59 06:59 06:59
Intake Total 1350 / 1350 100 / 100
Output Total 150 / 150 825 / 825
Balance 1200 / 1200 -725 / -725
Intake:
Oral fluids 200 / 200
IV fluids (Total) 1000 / 1000 100 / 100
Normosol 100 / 100
IV piggybacks 150 / 150
Output:
Urine, Ceballos 825 / 825
Urine, Voided 150 / 150
Other:
Number of approximated SMALL 1
amounts of urine
Number of approximated MODERATE 4
amounts of urine
Number of immeasurable emeses? 1
Vital Signs
Temp Pulse Resp BP Pulse Ox
98.4 F 85 16 119/80 95
11/28/24 03:26 11/28/24 06:14 11/28/24 06:14 11/28/24 04:00 11/28/24 06:14
Lab Results
11/28/24 05:22
11/28/24 05:22
Calcium 7.0 mg/dl (8.4-10.2) L 11/28/24 05:22
Magnesium 1.9 mg/dl (1.6-2.3) 11/27/24 06:45
Total Bilirubin 0.4 mg/dl (0.2-1.3) 11/28/24 05:22
AST 17 U/L (17-59) 11/28/24 05:22
ALT 27 U/L (0-50) 11/28/24 05:22
Alkaline Phosphatase 39 U/L (38-126) 11/28/24 05:22
Total Protein 4.9 g/dl (6.3-8.2) L 11/28/24 05:22
Albumin 3.0 g/dl (3.5-5.0) L 11/28/24 05:22
Physical Exam
-
Gen: NAD
Abd: soft, mild tenderness, mild/moderate distension, non-peritoneal, incisions c/d/i - no erythema, ecchymosis or drainage
Patient has a ceballos catheter: Yes
Patient has a central line: No
[2024-11-28] MEDS: HEPARIN 5000 UNITS SC ×2 (08:02→20:36)
[2024-11-28] MEDS: PROTONIX IV 40 MG IV (08:02)
[2024-11-28] MEDS: NSS (PRESERVATIVE FREE) 10 ML IV (08:02)
[2024-11-28 08:22] LABS: Anisocytosis Slight; Normal RBC Morphology No; Ovalocytes Slight; Platelets Checked Yes; Total Cells Counted 100
[2024-11-28 08:24] LABS: Absolute Neutrophils -Man Diff 10.1 10^3/uL (1.4-6.5)
--- NOTE | 2024-11-28 08:26 | PTCARENOTE ---
Patient received from shift boss. Patient resting comfortably in bed. AAO, VSS. No events noted overnight. Patient with complaints of pain in the abdomen, 12/08, see JUN. Currently on 2L N/C, will attempt to wean. Surgical sites CDI, surgical
glue intact. Patient to be downgraded to Tele, awaiting 2 South Bed. No other testing scheduled at this time. Call loving in reach.
--- NOTE | 2024-11-28 08:47 | W.PN.HOSP.TC ---
Today's Communication/Plan
-
Decrease frequency of IV Hydrocortisone
Transfer to telemetry
See plan
Assessment / Plan
Assessment / Plan
Physical Exam
General: Well Developed, Well Nourished and No Apparent Distress
HEENT: Normocephalic, Moist mucous membranes and Atraumatic
Respiratory: Clear
Cardiac: S1/S2 and Regular Rhythm
GI: Soft, Normal Bowel Sounds and Tender (periumbilically ); Hernia.
Musculoskeletal: No Cyanosis and No Edema
Skin: Warm. Dry.
Neuro: Nonfocal/grossly intact
Assessment/Plan
74-year-old male past medical history of bilateral inguinal hernia repair several years ago, COPD, osteoarthritis, mild intermittent asthma, rheumatoid arthritis, presenting with lower abdominal pain and intractable nausea vomiting for the past 4
days. He lost 11 pounds. He is unable to tolerate any p.o. fluids. Denies any fevers or night sweats. He has not passed any stool or gas in the past 4 days. He denies any prior history of bowel obstruction. He denies chest pain. He denies
shortness of breath is worse than his baseline. Drinks alcohol occasionally. Denies smoking currently.
# Small bowel obstruction status post robotic umbilical hernia repair with mesh on 11/27/24 for incarcerated umbilical hernia
- Umbilical hernia repair took place on 11/27/24
- CT scan showed small bowel obstruction with transition related to umbilical hernia, no bowel thickening or soft tissue stranding
- Diet post-op as per Surgery team
- IV fluids
- Tylenol, Dilaudid, Zofran as needed
- No NSAIDs given renal function
- General Surgery consult appreciated
- Follow for return of bowel function
- Decreased stress dose steroids (which were started in setting of patient's hypotension and chronic prednisone use earlier this hospitalization) from 50 mg IV Q6H to 50 mg IV Q12H --> will further reduce to home dose
tomorrow
#Fever, concern for sepsis with fever+bandemia
-IV fluids provided
-Stop Zosyn on 11/28/24 since leukocytosis resolved and cultures are negative
-Follow blood cultures
-Appreciate ID
# Acute kidney injury likely prerenal from GI loss and reduced PO intake over ~4 days prior to arrival
- Improving
- Continue IV fluids
#History of bilateral inguinal hernia repair
#COPD
- Continue albuterol, Trelegy Ellipta when able
- Continue montelukast when able
#Osteoarthritis
#Mild intermittent asthma
#Rheumatoid arthritis
- Continue leflunomide, meloxicam, home prednisone when able -- I started stress dose steroids on 11/27/24 given patient's significant hypotension with significant improvement in his blood pressure
- Given patient's symptoms, his last Prednisone dose was on the morning of 11/22/24
DNR/DNI
DVT prophylaxis�heparin subq
Anticipated Discharge: > 48 hours
Subjective/Interval History
-
Date of Service: November 28, 2024
Patient was seen and examined. He reported abdominal soreness but denied chest pain or shortness of breath.
Objective Data
-
Labs:
Laboratory Results
11/28/24
05:22
WBC 10.7
Hgb 10.1 L
Hct 31.1 L
Plt Count 191
Sodium 140
Potassium 3.5
Chloride 110 H
Carbon Dioxide 20 L
BUN 47 H
Creatinine 1.2
Glucose 102 H
Calcium 7.0 L
Total Bilirubin 0.4
AST 17
ALT 27
Alkaline Phosphatase 39
Vital Signs:
Vital Signs
Temp Pulse Resp BP Pulse Ox
98.1 F 80 19 119/80 96
11/28/24 07:08 11/28/24 07:00 11/28/24 07:00 11/28/24 04:00 11/28/24 07:00
I&O
11/27/24 11/28/24 11/29/24
06:59 06:59 06:59
Intake Total 1350 / 1350 100 / 100
Output Total 150 / 150 825 / 825
Balance 1200 / 1200 -725 / -725
[2024-11-28] MEDS: LR 1000 IV ×2 (10:57→20:45)
--- NOTE | 2024-11-28 11:25 | W.PN.ID1 ---
Date of Service
Date of Service: November 28, 2024
Today's Communication
Discontinue antibiotics and observe.
Assessment / Plan
Incarcerated umbilical hernia
- Reduced in ER
- s/p OR repair
Fevers
- Resolved
Normal white count with significant left shift
SALAZAR
Elevated ALT
COPD
Osteoarthritis
Asthma
Rheumatoid arthritis
Recommendations:
Zosyn (day #3)
Cultures negative thus far.
White count normalized.
Discontinue further antibiotics and observe.
����������������������������������������������������������
Chief Complaint
-: Other (Incarcerated hernia)
Subjective / Review of Systems
Review of Systems: No Fever, No Chills, Abdominal Pain, No Nausea and No Vomiting
Vital Signs / Physical Exam
Vital Signs
Vital Signs
Temp Pulse Resp BP Pulse Ox
98.1 F 80 19 119/80 96
11/28/24 11:14 11/28/24 07:00 11/28/24 07:00 11/28/24 04:00 11/28/24 07:00
Physical Exam
Constitutional: Comfortable and Non-toxic
Cardiovascular: S1/S2; Negative S3/S4
Pulmonary: Non Labored
Gastrointestinal: Soft, Tender and Other (Abdominal binder in place.)
Extremities: Negative Edema, Cyanosis or Erythema
Neurological: Awake and Alert
Psychological: Calm
Objective Data
Lab Data
Lab Results
11/28/24 05:22
11/28/24 05:22
Estimated Creat Clear 50 ml/min 11/28/24 05:22
Lactic Acid 1.7 mmol/L (0.7-2.0) 11/25/24 18:49
Total Bilirubin 0.4 mg/dl (0.2-1.3) 11/28/24 05:22
AST 17 U/L (17-59) 11/28/24 05:22
ALT 27 U/L (0-50) 11/28/24 05:22
Alkaline Phosphatase 39 U/L (38-126) 11/28/24 05:22
Most recent labs reviewed.
Micro Results:
11/27/24 03:41 Urine Culture - Final
Urine NO GROWTH
11/26/24 16:28 Blood Culture - Preliminary
Blood/Venous No Growth in 24 hours- Final report to follow
11/26/24 16:28 Blood Culture - Preliminary
Blood/Venous No Growth in 24 hours- Final report to follow
Imaging:
11/25/2024 CT abdomen/pelvis with IV contrast: there is diffuse fluid distention of the small bowel measuring up to 4 cm. Transition appears to be associated with a short segment of small bowel herniation at the umbilicus, where there is a 1.7 cm
defect of the base of the umbilicus and a 3 cm hernia sac. No bowel wall thickening. No soft tissue stranding. No evidence for pneumatosis. There is associated moderate to large fluid distention of the stomach. Colon is relatively collapsed.
Sigmoid diverticulosis without acute diverticulitis is noted. Please see full dictation for additional detail.
--- NOTE | 2024-11-28 11:44 | PN.CDI ---
CDI
- -
CDI:
Physician Documentation Request
Admit Date: 11/25/24 23:22
Dear Doctor Stacia,
Patient presented with incarcerated umbilical hernia and underwent robotic umbilical hernia repair with mesh on 11/27.
On 11/26 patient developed fever T max 101.3, Heart rate at that approx time 110
11/26-11/27 hospitalist progress notes states 'Fever, concern for sepsis with fever+bandemia'
Patient also noted to have creatine increase 1.6 to 2.0 on 11/26 SALAZAR.
Please clarify which most accurately describes the patient:
Sepsis
Systemic manifestations of infection, with 2 or more SIRS criteria which include:
Fever > 100.4 degrees F or hypothermia < 96.8 degrees F
Leukocytosis - WBC > 12,000 or leukopenia, WBC < 4,000 or > 10% bands
Tachycardia - > 90 beats per minute
Tachypnea - RR > 20 breaths per minute or PaCO2 < 32 mmHg
Source: Merck Manual 2013
Indicate the known or suspected underlying infection, such as UTI, pneumonia or cellulitis
Indicate if a suspected bacterial infection of unknown source
Indicate if associated with an implanted device such as a F/C, PICC line, orthopedic hardware etc.
Indicate if there is associated organ dysfunction, such as renal or respiratory failure
SIRS due to a non-infectious source
Indicate if there is associated organ dysfunction, such as renal or respiratory failure
Other
Use of terms such as suspected, likely, concern for, or probable (associated with a specific diagnosis that is being evaluated, monitored, or treated as if it exists) are acceptable and can be coded in the inpatient setting, when documented at the
time of discharge.
Thank you,
Lala Bond RN, BSN
CDI Specialist
tiger text
Please use your independent medical judgment in providing your response.
[2024-11-28] MEDS: OCEAN, SALINE MIST 2 SPRAYS NASAL (12:32)
--- NOTE | 2024-11-28 17:31 | CM ---
Patient with Dx Incarcerated umbilical hernia who is s/p Robotic umbilical hernia repair today. O2 2L. NPO/IVF. Receiving IV Steroids, IV Dilaudid prn, IV Protonix. Per nurse; A/O, requires assist of 1.
CM continuing to follow for d/c needs.
Plan home.
--- NOTE | 2024-11-28 19:45 | PTCARENOTE ---
Patient transferred to [address] [place] [address] with all known belongings. Colette RN 2S in room to receive patient.
--- NOTE | 2024-11-28 20:20 | TRANSFER ---
Received pt from IMU in bed at 1930 s/p willian umbilical hernia repair w mesh - abd w 4 lap sites (3 BRIAN w glue, one with 2x2 and gauze) all clean and dry. Abdominal binder intact. Pt remains on 2L O2 @95%. Paris catheter w clear yellow urine. IVF as
ordered. VSS, care ongoing.
[2024-11-29] MEDS: DILAUDID 0.5 MG IV ×5 (00:55→22:25)
[2024-11-29 03:00] VITALS: BP 137/84
[2024-11-29 05:54] LABS: Hematocrit 31.5 % (39.0-52.0); Hemoglobin 10.4 g/dL (13.0-18.0); Mean Corp Hgb Conc. 33.0 g/dL (33.0-37.0); Mean Corpuscular Volume 90.0 fL (80.0-94.0); Nucleated Red Blood Cells % 0 % (-); Platelet Count 201 10^3/uL (130-400); Red Cell Dist. Width 14.9 % (11.5-14.5)
[2024-11-29 06:17] LABS: ALT (SGPT) 24 U/L (0-50); AST (SGOT) 17 U/L (17-59); Albumin 3.2 g/dl (3.5-5.0); Alkaline Phosphatase 55 U/L (38-126); Blood Urea Nitrogen 39 mg/dl (9-20); Calcium 7.4 mg/dl (8.4-10.2); Carbon Dioxide 21 mmol/L (22-30); Chloride 110 mmol/L (98-107); Estimated Creatinine Clearance 60 ml/min; Glucose 95 mg/dl (70-99); Magnesium 2.3 mg/dl (1.6-2.3); Potassium 3.4 mmol/L (3.5-5.1); Sodium 141 mmol/L (135-145); Total Protein 5.2 g/dl (6.3-8.2); eGFR > 60.00
[2024-11-29 07:00] VITALS: BP 131/76
[2024-11-29] MEDS: LR 1000 IV ×2 (07:20→16:10)
[2024-11-29] MEDS: PROTONIX IV 40 MG IV (08:01)
[2024-11-29] MEDS: NSS (PRESERVATIVE FREE) 10 ML IV (08:01)
[2024-11-29] MEDS: HEPARIN 5000 UNITS SC ×2 (08:01→19:38)
[2024-11-29] MEDS: SOLU-CORTEF 50 MG IV (08:02)
[2024-11-29] MEDS: ANESTHETIC LOZENGE 1 LOZENGE PO (08:05)
[2024-11-29] MEDS: SPIRIVA RESPIMAT 2.5 MCG 2 PUFF INH (08:15)
[2024-11-29] MEDS: SYMBICORT 160/4.5 MCG INHALER 2 PUFF INH ×2 (08:15→18:30)
--- NOTE | 2024-11-29 08:32 | W.PN.GS2 ---
Today's Communication / Plan
-
-- Clears
-- Decrease IVF and possible DC if tolerates diet
-- Ceballos removed
-- OOB/ambulate, IS
-- Would resume home steroids at IV equivalent, can likely transition to PO tomorrow if tolerates diet today
Assessment / Plan
-
Patient is a 74 yo M p/w incarcerated nonreducible umbilical hernia with associated bowel obstruction
POD#2 s/p RAL umbilical hernia repair with mesh
AVSS
Reactive leukocytosis possibly from steroids, creatinine trending down
No major concerns from surgical perspective. Slow return or bowel function, plan for trial of clears and possible fulls for dinner. Stable and improving from a pulmonary perspective.
-- Clears
-- Decrease IVF and possible DC if tolerate diet
-- Pain control: Tylenol, Dilaudid, holding on NSAIDs given Cr issues (may resume in the next day or two if Cr normalizes)
-- OOB/ambulate, IS
-- Would resume home steroids at IV equivalent, can likely transition to PO tomorrow if tolerates diet today
-- Abx DC'd
-- GI: PPI
-- DVT: SQH
Subjective Data
-
Date of Service: November 29, 2024
Feels improved. Pain well-controlled. No nausea or vomiting. Passing flatus and a larger more formed BM. Ambulating. Ceballos removed this AM. Afebrile. Denies any worsening shortness of breath and weaned off O2.
Objective Data
-
Intake and Output
11/28/24 11/29/24 11/30/24
06:59 06:59 06:59
Intake Total 100 / 100 2435 / 2435
Output Total 825 / 825 1050 / 1050
Balance -725 / -725 1385 / 1385
Intake:
Oral fluids 260 / 260
IV fluids (Total) 100 / 100 2175 / 2175
Normosol 100 / 100
Output:
Urine, Ceballos 825 / 825 1050 / 1050
Vital Signs
Temp Pulse Resp BP Pulse Ox
97.6 F 84 20 131/76 94
11/29/24 07:00 11/29/24 08:21 11/29/24 08:21 11/29/24 07:00 11/29/24 07:00
Lab Results
11/29/24 05:41
11/29/24 05:41
Calcium 7.4 mg/dl (8.4-10.2) L 11/29/24 05:41
Magnesium 2.3 mg/dl (1.6-2.3) 11/29/24 05:41
Total Bilirubin 0.5 mg/dl (0.2-1.3) 11/29/24 05:41
AST 17 U/L (17-59) 11/29/24 05:41
ALT 24 U/L (0-50) 11/29/24 05:41
Alkaline Phosphatase 55 U/L (38-126) 11/29/24 05:41
Total Protein 5.2 g/dl (6.3-8.2) L 11/29/24 05:41
Albumin 3.2 g/dl (3.5-5.0) L 11/29/24 05:41
Physical Exam
-
Gen; NAD
Abd: soft, mild tenderness, mild distension, non-peritoneal, incisions c/d/i - no erythema, ecchymosis or drainage
Patient has a ceballos catheter: No
Patient has a central line: No
[2024-11-29 11:00] VITALS: BP 134/76
--- NOTE | 2024-11-29 11:02 | W.PN.ID1 ---
Date of Service
Date of Service: November 29, 2024
Today's Communication
Sign off
Assessment / Plan
Incarcerated umbilical hernia
- Reduced in ER
- s/p OR repair
Fevers
- Resolved
Leukocytosis; suspect steroid effect.
SALAZAR
Elevated ALT
COPD
Osteoarthritis
Asthma
Rheumatoid arthritis
Recommendations:
Cultures remain negative
Today's leukocytosis likely secondary to steroids.
Continue off antibiotics.
Nothing further to add from a Infectious Disease standpoint.
Will see again at your request.
����������������������������������������������������������
Chief Complaint
-: Other (Incarcerated hernia)
Subjective / Review of Systems
Review of Systems: No Fever and No Chills
Vital Signs / Physical Exam
Vital Signs
Vital Signs
Temp Pulse Resp BP Pulse Ox
97.6 F 84 20 131/76 94
11/29/24 07:00 11/29/24 08:21 11/29/24 08:21 11/29/24 07:00 11/29/24 07:00
Physical Exam
Constitutional: Comfortable and Non-toxic
Cardiovascular: S1/S2; Negative S3/S4
Pulmonary: Non Labored
Gastrointestinal: Soft, Tender and Other (Abdominal binder in place.)
Extremities: Negative Edema, Cyanosis or Erythema
Neurological: Awake and Alert
Psychological: Calm
Objective Data
Lab Data
Lab Results
11/29/24 05:41
11/29/24 05:41
Estimated Creat Clear 60 ml/min 11/29/24 05:41
Lactic Acid 1.7 mmol/L (0.7-2.0) 11/25/24 18:49
Total Bilirubin 0.5 mg/dl (0.2-1.3) 11/29/24 05:41
AST 17 U/L (17-59) 11/29/24 05:41
ALT 24 U/L (0-50) 11/29/24 05:41
Alkaline Phosphatase 55 U/L (38-126) 11/29/24 05:41
Most recent labs reviewed.
Micro Results:
11/26/24 16:28 Blood Culture - Preliminary
Blood/Venous No Growth in 48 hours- Final report to follow
11/26/24 16:28 Blood Culture - Preliminary
Blood/Venous No Growth in 48 hours- Final report to follow
11/27/24 03:41 Urine Culture - Final
Urine NO GROWTH
Imaging:
11/25/2024 CT abdomen/pelvis with IV contrast: there is diffuse fluid distention of the small bowel measuring up to 4 cm. Transition appears to be associated with a short segment of small bowel herniation at the umbilicus, where there is a 1.7 cm
defect of the base of the umbilicus and a 3 cm hernia sac. No bowel wall thickening. No soft tissue stranding. No evidence for pneumatosis. There is associated moderate to large fluid distention of the stomach. Colon is relatively collapsed.
Sigmoid diverticulosis without acute diverticulitis is noted. Please see full dictation for additional detail.
Care Review
Plan reviewed with: Physician (General Surgery)
--- NOTE | 2024-11-29 14:04 | CM ---
CM following re: discharge planning.
Reviewed pt's chart, met with pt.
Pt is POD#2 s/p RAL umbilical hernia repair with mesh, continue supportive care.
PT and OT will evaluate the pt to determine a level of care at discharge.
Pt lives alone 1 story apartment and pt is independent in all areas [employer].
D/C plan: Home with anticipated no needs vs VN if indicated.
CM will follow with discharge plan updates as hospitalization progresses
[2024-11-29 15:00] VITALS: BP 149/85
[2024-11-29 19:11] VITALS: BP 145/89
--- NOTE | 2024-11-29 19:25 | W.PN.HOSP.TC ---
Today's Communication/Plan
-
See plan
Assessment / Plan
Assessment / Plan
Physical Exam
General: Well Developed, Well Nourished and No Apparent Distress
HEENT: Normocephalic, Moist mucous membranes and Atraumatic
Respiratory: Clear
Cardiac: S1/S2 and Regular Rhythm
GI: Soft, Normal Bowel Sounds and Tender (periumbilically ); Hernia.
Musculoskeletal: No Cyanosis and No Edema
Skin: Warm. Dry.
Neuro: Nonfocal/grossly intact
Assessment/Plan
74-year-old male past medical history of bilateral inguinal hernia repair several years ago, COPD, osteoarthritis, mild intermittent asthma, rheumatoid arthritis, presenting with lower abdominal pain and intractable nausea vomiting for the past 4
days. He lost 11 pounds. He is unable to tolerate any p.o. fluids. Denies any fevers or night sweats. He has not passed any stool or gas in the past 4 days. He denies any prior history of bowel obstruction. He denies chest pain. He denies
shortness of breath is worse than his baseline. Drinks alcohol occasionally. Denies smoking currently.
# Small bowel obstruction status post robotic umbilical hernia repair with mesh on 11/27/24 for incarcerated umbilical hernia
- Umbilical hernia repair took place on 11/27/24
- CT scan showed small bowel obstruction with transition related to umbilical hernia, no bowel thickening or soft tissue stranding
- Advance diet to clear liquids
- IV fluids can be weaned off if patient is tolerating a diet
- Tylenol, Dilaudid, Zofran as needed
- No NSAIDs given renal function
- General Surgery consult appreciated
- Follow for return of bowel function
- Decreased stress dose steroids (which were started in setting of patient's hypotension and chronic prednisone use earlier this hospitalization) from 50 mg IV Q6H to 50 mg IV Q12H --> will further reduce to home dose
tomorrow
#Fever, concern for sepsis with fever+bandemia
-IV fluids provided
-Stop Zosyn on 11/28/24 since leukocytosis resolved and cultures are negative
-Follow blood cultures
-Appreciate ID
# Acute kidney injury likely prerenal from GI loss and reduced PO intake over ~4 days prior to arrival
- Improving
- Continue IV fluids
#History of bilateral inguinal hernia repair
#COPD
- Continue albuterol, Trelegy Ellipta when able
- Continue montelukast when able
#Osteoarthritis
#Mild intermittent asthma
#Rheumatoid arthritis
- Continue leflunomide, meloxicam, home prednisone when able -- I started stress dose steroids on 11/27/24 given patient's significant hypotension with significant improvement in his blood pressure
- Given patient's symptoms, his last Prednisone dose was on the morning of 11/22/24
DNR/DNI
DVT prophylaxis�heparin subq
Anticipated Discharge: 24 - 48 hours
Subjective/Interval History
-
Date of Service: November 29, 2024
Patient was seen and examined. He reported feeling good.
Objective Data
-
Vital Signs:
Vital Signs
Temp Pulse Resp BP Pulse Ox
97.9 F 82 16 149/85 95
11/29/24 15:00 11/29/24 18:33 11/29/24 18:33 11/29/24 15:00 11/29/24 15:00
I&O
11/28/24 11/29/24 11/30/24
06:59 06:59 06:59
Intake Total 100 / 100 2435 / 2435 1620 / 1620
Output Total 825 / 825 1050 / 1050 220 / 220
Balance -725 / -725 1385 / 1385 1400 / 1400
[2024-11-29] MEDS: KCL 40 MEQ PO (19:37)
[2024-11-29 23:42] VITALS: BP 135/86
[2024-11-30] MEDS: DILAUDID 0.5 MG IV ×3 (03:01→16:54)
[2024-11-30 03:40] VITALS: BP 159/89
[2024-11-30 06:47] LABS: ALT (SGPT) 24 U/L (0-50); AST (SGOT) 20 U/L (17-59); Albumin 2.9 g/dl (3.5-5.0); Alkaline Phosphatase 54 U/L (38-126); Blood Urea Nitrogen 32 mg/dl (9-20); Calcium 7.8 mg/dl (8.4-10.2); Carbon Dioxide 27 mmol/L (22-30); Chloride 109 mmol/L (98-107); Estimated Creatinine Clearance 75 ml/min; Glucose 92 mg/dl (70-99); Hematocrit 32.6 % (39.0-52.0); Hemoglobin 10.9 g/dL (13.0-18.0); Mean Corp Hgb Conc. 33.4 g/dL (33.0-37.0); Mean Corpuscular Volume 89.3 fL (80.0-94.0); Platelet Count 223 10^3/uL (130-400); Potassium 3.5 mmol/L (3.5-5.1); Red Cell Dist. Width 14.6 % (11.5-14.5); Sodium 138 mmol/L (135-145); Total Protein 5.0 g/dl (6.3-8.2); eGFR > 60.00
[2024-11-30 07:00] VITALS: BP 155/93
[2024-11-30] MEDS: SPIRIVA RESPIMAT 2.5 MCG 2 PUFF INH (07:50)
[2024-11-30] MEDS: SYMBICORT 160/4.5 MCG INHALER 2 PUFF INH ×2 (07:50→19:26)
[2024-11-30] MEDS: SOLU-CORTEF 30 MG IV (08:35)
[2024-11-30] MEDS: HEPARIN 5000 UNITS SC ×2 (08:36→21:26)
[2024-11-30] MEDS: PROTONIX IV 40 MG IV (08:37)
[2024-11-30] MEDS: NSS (PRESERVATIVE FREE) 10 ML IV (08:38)
--- NOTE | 2024-11-30 10:08 | W.PN.GS2 ---
Today's Communication / Plan
-
`
Assessment / Plan
-
Assessment: Patient is a 74 yo M p/w incarcerated nonreducible umbilical hernia with associated bowel obstruction
POD#3 s/p RAL umbilical hernia repair with mesh
AFVSS
Reactive leukocytosis resolved
Doing well with postoperative recovery
Plan: Regular diet
Multimodal pain control options
Stable for discharge from surgical standpoint however patient reports that he has no assistance at home and does not feel independent enough to be by himself yet
PT consulted
Subjective Data
-
Date of Service: November 30, 2024
Patient seen and examined
Reports continued postoperative pain but within typical expectations for the procedure he had
Passing flatus and had bowel movements
Tolerating clear liquids well, appetite returning
States that he will not be ready for discharge home until after the weekend
Objective Data
-
Intake and Output
11/29/24 11/30/24 12/01/24
06:59 06:59 06:59
Intake Total 2435 / 2435 2100 / 2100
Output Total 1050 / 1050 495 / 495
Balance 1385 / 1385 1605 / 1605
Intake:
Oral fluids 260 / 260 1200 / 1200
IV fluids (Total) 2175 / 2175 900 / 900
Output:
Urine, [place] 1050 / 1050 120 / 120
Urine, Voided 375 / 375
Vital Signs
Temp Pulse Resp BP Pulse Ox
98.0 F 76 16 155/93 93
11/30/24 07:00 11/30/24 07:51 11/30/24 07:51 11/30/24 07:00 11/30/24 07:51
Lab Results
11/30/24 05:19
11/30/24 05:19
Calcium 7.8 mg/dl (8.4-10.2) L 11/30/24 05:19
Magnesium 2.3 mg/dl (1.6-2.3) 11/29/24 05:41
Total Bilirubin 0.5 mg/dl (0.2-1.3) 11/30/24 05:19
AST 20 U/L (17-59) 11/30/24 05:19
ALT 24 U/L (0-50) 11/30/24 05:19
Alkaline Phosphatase 54 U/L (38-126) 11/30/24 05:19
Total Protein 5.0 g/dl (6.3-8.2) L 11/30/24 05:19
Albumin 2.9 g/dl (3.5-5.0) L 11/30/24 05:19
Physical Exam
-
NAD AAO x 3
ABD: Soft, nondistended, localized incisional tenderness.
Robotic surgical sites with glue dressings and some ecchymosis
Umbilical dressing in place and clean
[2024-11-30 11:00] VITALS: BP 153/98
[2024-11-30] MEDS: MOBIC 15 MG PO (11:26)
[2024-11-30 15:00] VITALS: BP 150/98
--- NOTE | 2024-11-30 15:38 | CM ---
Met with pt to discuss VN.
Pt is interested. Offered choice. Preference for [facility], will send referral now via [facility].
--- NOTE | 2024-11-30 16:30 | CM ---
CM attempted to reach cousin Alberto to update of dc tomorrow as pt reported Alberto will transport home.
Phone # in chart for cousin Alberto is actually pt's cell #.
Pt gave Alberto's # as [phone] which is a wrong #.
[2024-11-30] MEDS: ANESTHETIC LOZENGE 1 LOZENGE PO (16:54)
[2024-11-30] MEDS: ZOFRAN 4 MG IV (16:55)
--- NOTE | 2024-11-30 18:43 | W.PN.HOSP.TC ---
Today's Communication/Plan
-
Patient still needs to set everything up at home and he stated he is unable to leave today
See plan
Assessment / Plan
Assessment / Plan
Physical Exam
General: Well Developed, Well Nourished and No Apparent Distress
HEENT: Normocephalic, Moist mucous membranes and Atraumatic
Respiratory: Clear
Cardiac: S1/S2 and Regular Rhythm
GI: Soft, Normal Bowel Sounds and Tender (periumbilically ); Hernia.
Musculoskeletal: No Cyanosis and No Edema
Skin: Warm. Dry.
Neuro: Nonfocal/grossly intact
Assessment/Plan
74-year-old male past medical history of bilateral inguinal hernia repair several years ago, COPD, osteoarthritis, mild intermittent asthma, rheumatoid arthritis, presenting with lower abdominal pain and intractable nausea vomiting for the past 4
days. He lost 11 pounds. He is unable to tolerate any p.o. fluids. Denies any fevers or night sweats. He has not passed any stool or gas in the past 4 days. He denies any prior history of bowel obstruction. He denies chest pain. He denies
shortness of breath is worse than his baseline. Drinks alcohol occasionally. Denies smoking currently.
# Small bowel obstruction status post robotic umbilical hernia repair with mesh on 11/27/24 for incarcerated umbilical hernia
- Umbilical hernia repair took place on 11/27/24
- CT scan showed small bowel obstruction with transition related to umbilical hernia, no bowel thickening or soft tissue stranding
- Advance diet to Regular
- IV fluids weaned off
- Tylenol, Dilaudid, Zofran as needed
- No NSAIDs given renal function
- General Surgery consult appreciated
- Decreased stress dose steroids (which were started in setting of patient's hypotension and chronic prednisone use earlier this hospitalization) from 50 mg IV Q6H to 50 mg IV Q12H --> now, continue home dose, received Hydrocortisone IV 30 mg today
(equivalent of home dose) --> switch to Prednisone 7.5 daily tomorrow
#Fever, concern for sepsis with fever+bandemia from abdominal source versus stress reaction for umbilical hernia pathology
-IV fluids provided
-Zosyn on 11/28/24 since leukocytosis resolved and cultures are negative so Zosyn stopped
-Follow blood cultures
-Appreciate ID
# Acute kidney injury likely prerenal from GI loss and reduced PO intake over ~4 days prior to arrival
- Improving
- Continue IV fluids
#History of bilateral inguinal hernia repair
#COPD
- Continue albuterol, Trelegy Ellipta when able
- Continue montelukast when able
#Osteoarthritis
#Mild intermittent asthma
#Rheumatoid arthritis
- Continue leflunomide, meloxicam, home prednisone when able -- I started stress dose steroids on 11/27/24 given patient's significant hypotension with significant improvement in his blood pressure
- Given patient's symptoms, his last Prednisone dose was on the morning of 11/22/24
- Home dose of steroids resumed on 11/30/24
DNR/DNI
DVT Prophylaxis: Heparin subq
Anticipated Discharge: 24 - 48 hours
Subjective/Interval History
-
Date of Service: November 30, 2024
Patient was seen and examined. He was doing okay and denied any new significant symptoms.
Objective Data
-
Labs:
Laboratory Results
11/30/24
05:19
WBC 8.5
Hgb 10.9 L
Hct 32.6 L
Plt Count 223
Sodium 138
Potassium 3.5
Chloride 109 H
Carbon Dioxide 27
BUN 32 H
Creatinine 0.8
Glucose 92
Calcium 7.8 L
Total Bilirubin 0.5
AST 20
ALT 24
Alkaline Phosphatase 54
Vital Signs:
Vital Signs
Temp Pulse Resp BP Pulse Ox
99.9 F 81 16 150/98 95
11/30/24 15:00 11/30/24 15:00 11/30/24 15:00 11/30/24 15:00 11/30/24 15:00
I&O
11/29/24 11/30/24 12/01/24
06:59 06:59 06:59
Intake Total 2435 / 2435 2100 / 2100 360 / 360
Output Total 1050 / 1050 495 / 495
Balance 1385 / 1385 1605 / 1605 360 / 360
[2024-11-30 19:39] VITALS: BP 131/82
[2024-11-30] MEDS: SINGULAIR 10 MG PO (21:26)
[2024-11-30] MEDS: CLARITIN 10 MG PO (21:26)
[2024-11-30] MEDS: TYLENOL 650 MG PO (22:50)
[2024-11-30 23:49] VITALS: BP 152/99
[2024-12-01] MEDS: DILAUDID 0.5 MG IV ×3 (02:35→22:57)
[2024-12-01 03:03] VITALS: BP 161/101
[2024-12-01 04:47] LABS: Hematocrit 29.8 % (39.0-52.0); Hemoglobin 10.1 g/dL (13.0-18.0); Mean Corp Hgb Conc. 33.9 g/dL (33.0-37.0); Mean Corpuscular Volume 88.7 fL (80.0-94.0); Platelet Count 235 10^3/uL (130-400); Red Cell Dist. Width 14.5 % (11.5-14.5)
[2024-12-01 05:08] LABS: ALT (SGPT) 34 U/L (0-50); AST (SGOT) 31 U/L (17-59); Albumin 2.8 g/dl (3.5-5.0); Alkaline Phosphatase 57 U/L (38-126); Blood Urea Nitrogen 27 mg/dl (9-20); Calcium 8.1 mg/dl (8.4-10.2); Carbon Dioxide 25 mmol/L (22-30); Chloride 107 mmol/L (98-107); Estimated Creatinine Clearance 75 ml/min; Glucose 102 mg/dl (70-99); Potassium 3.2 mmol/L (3.5-5.1); Sodium 135 mmol/L (135-145); Total Protein 5.0 g/dl (6.3-8.2); eGFR > 60.00
[2024-12-01 07:10] VITALS: BP 149/97
[2024-12-01] MEDS: PEPCID 20 MG PO (07:56)
[2024-12-01] MEDS: ULTRAM 50 MG PO (07:56)
[2024-12-01] MEDS: MOBIC 15 MG PO (07:57)
[2024-12-01] MEDS: SPIRIVA RESPIMAT 2.5 MCG 2 PUFF INH (07:57)
[2024-12-01] MEDS: SYMBICORT 160/4.5 MCG INHALER 2 PUFF INH (07:57)
[2024-12-01] MEDS: HEPARIN 5000 UNITS SC ×2 (07:57→19:47)
[2024-12-01] MEDS: DELTASONE 7.5 MG PO (07:57)
[2024-12-01] MEDS: NSS (PRESERVATIVE FREE) 10 ML IV (07:59)
[2024-12-01] MEDS: PROTONIX IV 40 MG IV (07:59)
--- NOTE | 2024-12-01 14:50 | W.PN.HOSP.TC ---
Today's Communication/Plan
-
PT/OT. Placement. Patient stated he is feeling nauseous and cannot go home today.
Assessment / Plan
Assessment / Plan
Physical Exam
General: Well Developed, Well Nourished and No Apparent Distress
HEENT: Normocephalic, Moist mucous membranes and Atraumatic
Respiratory: Clear
Cardiac: S1/S2 and Regular Rhythm
GI: Soft, Normal Bowel Sounds and Tender (periumbilically )
Musculoskeletal: No Cyanosis and No Edema
Skin: Warm. Dry.
Neuro: Nonfocal/grossly intact
Assessment/Plan
74-year-old male past medical history of bilateral inguinal hernia repair several years ago, COPD, osteoarthritis, mild intermittent asthma, rheumatoid arthritis, presenting with lower abdominal pain and intractable nausea vomiting for the past 4
days. He lost 11 pounds. He is unable to tolerate any p.o. fluids. Denies any fevers or night sweats. He has not passed any stool or gas in the past 4 days. He denies any prior history of bowel obstruction. He denies chest pain. He denies
shortness of breath is worse than his baseline. Drinks alcohol occasionally. Denies smoking currently.
# Small bowel obstruction status post robotic umbilical hernia repair with mesh on 11/27/24 for incarcerated umbilical hernia
- Umbilical hernia repair took place on 11/27/24
- CT scan showed small bowel obstruction with transition related to umbilical hernia, no bowel thickening or soft tissue stranding
- Continue Regular diet
- IV fluids previously weaned off
- Tylenol, Dilaudid, Zofran as needed
- General Surgery consult appreciated
- Decreased stress dose steroids (which were started in setting of patient's hypotension and chronic prednisone use earlier this hospitalization) from 50 mg IV Q6H to 50 mg IV Q12H --> now, continue home dose, received
Hydrocortisone IV 30 mg today (equivalent of home dose) --> now continue Prednisone 7.5 daily
#Fever, concern for sepsis with fever+bandemia from abdominal source versus stress reaction for umbilical hernia pathology
-IV fluids provided
-Zosyn on 11/28/24 since leukocytosis resolved and cultures are negative so Zosyn stopped
-Blood cultures with no growth
-Appreciate ID
# Acute kidney injury likely prerenal from GI loss and reduced PO intake over ~4 days prior to arrival
- Improved
#History of bilateral inguinal hernia repair
#COPD
- Continue albuterol, Trelegy Ellipta when able
- Continue montelukast when able
#Osteoarthritis
#Mild intermittent asthma
#Rheumatoid arthritis
- Continue leflunomide, meloxicam, home prednisone when able -- I started stress dose steroids on 11/27/24 given patient's significant hypotension with significant improvement in his blood pressure
- Given patient's symptoms, his last Prednisone dose was on the morning of 11/22/24
- Home dose of steroids resumed on 11/30/24
#Hypertension
- Diet changed to 2 gram sodium
- Amlodipine added
DNR/DNI
DVT Prophylaxis: Heparin subq
Anticipated Discharge: Within 24 hours
Subjective/Interval History
-
Date of Service: December 01, 2024
Patient was seen and examined. He reported not feeling too great.
Objective Data
-
Labs:
Laboratory Results
12/01/24
04:13
WBC 8.7
Hgb 10.1 L
Hct 29.8 L
Plt Count 235
Sodium 135
Potassium 3.2 L
Chloride 107
Carbon Dioxide 25
BUN 27 H
Creatinine 0.8
Glucose 102 H
Calcium 8.1 L
Total Bilirubin 0.7
AST 31
ALT 34
Alkaline Phosphatase 57
Vital Signs:
Vital Signs
Temp Pulse Resp BP Pulse Ox
98.5 F 80 16 149/97 96
12/01/24 07:10 12/01/24 07:58 12/01/24 07:58 12/01/24 07:10 12/01/24 08:12
I&O
11/30/24 12/01/24 12/02/24
06:59 06:59 06:59
Intake Total 2100 / 2100 960 / 960
Output Total 495 / 495
Balance 1605 / 1605 960 / 960
[2024-12-01 15:20] VITALS: BP 167/105
[2024-12-01 15:25] VITALS: BP 167/105; BP 169/110; PULSE 89; O2SAT 95
[2024-12-01] MEDS: NORVASC 2.5 MG PO (16:45)
[2024-12-01] MEDS: ZOFRAN 4 MG IV (16:45)
[2024-12-01] MEDS: KCL 40 MEQ PO (19:47)
[2024-12-01] MEDS: NON-FORMULARY ITEM PO (20:12)
[2024-12-01] MEDS: NON-FORMULARY ITEM 1 INH INH (20:35)
[2024-12-01] MEDS: SINGULAIR 10 MG PO (21:22)
[2024-12-01] MEDS: NON-FORMULARY ITEM 20 MG PO (21:22)
[2024-12-01] MEDS: NON-FORMULARY ITEM 180 MG PO (21:23)
[2024-12-01 22:46] VITALS: BP 143/100
[2024-12-02] MEDS: DILAUDID 0.5 MG IV (04:18)
[2024-12-02 05:36] VITALS: BP 146/97
[2024-12-02 06:30] LABS: Hematocrit 28.8 % (39.0-52.0); Hemoglobin 9.7 g/dL (13.0-18.0); Mean Corp Hgb Conc. 33.7 g/dL (33.0-37.0); Mean Corpuscular Volume 88.9 fL (80.0-94.0); Platelet Count 245 10^3/uL (130-400); Red Cell Dist. Width 14.3 % (11.5-14.5)
[2024-12-02 06:49] LABS: ALT (SGPT) 36 U/L (0-50); AST (SGOT) 26 U/L (17-59); Albumin 2.8 g/dl (3.5-5.0); Alkaline Phosphatase 53 U/L (38-126); Blood Urea Nitrogen 21 mg/dl (9-20); Calcium 7.8 mg/dl (8.4-10.2); Carbon Dioxide 25 mmol/L (22-30); Chloride 107 mmol/L (98-107); Estimated Creatinine Clearance 86 ml/min; Glucose 86 mg/dl (70-99); Potassium 3.8 mmol/L (3.5-5.1); Sodium 136 mmol/L (135-145); Total Protein 4.8 g/dl (6.3-8.2); eGFR > 60.00
[2024-12-02 07:10] VITALS: BP 156/100
[2024-12-02 08:57] VITALS: BP 149/98; PULSE 82; O2SAT 95
[2024-12-02] MEDS: PROTONIX IV 40 MG IV (09:21)
[2024-12-02] MEDS: MOBIC 15 MG PO (09:21)
[2024-12-02] MEDS: PEPCID 20 MG PO (09:21)
[2024-12-02] MEDS: NORVASC 2.5 MG PO (09:21)
[2024-12-02] MEDS: DELTASONE 7.5 MG PO (09:21)
[2024-12-02] MEDS: NSS (PRESERVATIVE FREE) 10 ML IV (09:22)
[2024-12-02] MEDS: ULTRAM 50 MG PO (09:22)
[2024-12-02] MEDS: HEPARIN 5000 UNITS SC (09:22)
--- NOTE | 2024-12-02 10:06 | W.PN.HOSP.TC ---
Today's Communication/Plan
-
Discharge today
Assessment / Plan
Assessment / Plan
Physical Exam
General: Well Developed, Well Nourished and No Apparent Distress
HEENT: Normocephalic, Moist mucous membranes and Atraumatic
Respiratory: Clear
Cardiac: S1/S2 and Regular Rhythm
GI: Soft, Normal Bowel Sounds and Tender (periumbilically )
Musculoskeletal: No Cyanosis and No Edema
Skin: Warm. Dry.
Neuro: Nonfocal/grossly intact
Assessment/Plan
74-year-old male past medical history of bilateral inguinal hernia repair several years ago, COPD, osteoarthritis, mild intermittent asthma, rheumatoid arthritis, presenting with lower abdominal pain and intractable nausea vomiting for the past 4
days. He lost 11 pounds. He is unable to tolerate any p.o. fluids. Denies any fevers or night sweats. He has not passed any stool or gas in the past 4 days. He denies any prior history of bowel obstruction. He denies chest pain. He denies
shortness of breath is worse than his baseline. Drinks alcohol occasionally. Denies smoking currently.
# Small bowel obstruction status post robotic umbilical hernia repair with mesh on 11/27/24 for incarcerated umbilical hernia
- Umbilical hernia repair took place on 11/27/24
- CT scan showed small bowel obstruction with transition related to umbilical hernia, no bowel thickening or soft tissue stranding
- Continue Regular diet
- IV fluids previously weaned off
- Tylenol, Dilaudid, Zofran as needed
- Bowel regimen with Miralax daily while on narcotics
- General Surgery consult appreciated
- Decreased stress dose steroids (which were started in setting of patient's hypotension and chronic prednisone use earlier this hospitalization) from 50 mg IV Q6H to 50 mg IV Q12H --> now, continue home dose, received
Hydrocortisone IV 30 mg today (equivalent of home dose) --> now continue Prednisone 7.5 daily
#Fever, concern for sepsis with fever+bandemia from abdominal source versus stress reaction for umbilical hernia pathology
-IV fluids provided
-Zosyn on 11/28/24 since leukocytosis resolved and cultures are negative so Zosyn stopped
-Blood cultures with no growth
-Appreciate ID
# Acute kidney injury - RESOLVED - likely prerenal from GI loss and reduced PO intake over ~4 days prior to arrival
- Improved
#History of bilateral inguinal hernia repair
#COPD
- Continue albuterol, Trelegy Ellipta when able
- Continue montelukast when able
#Osteoarthritis
#Mild intermittent asthma
#Rheumatoid arthritis
- Continue leflunomide, meloxicam, home prednisone when able -- I started stress dose steroids on 11/27/24 given patient's significant hypotension with significant improvement in his blood pressure
- Given patient's symptoms, his last Prednisone dose was on the morning of 11/22/24
- Home dose of steroids resumed on 11/30/24
#Hypertension
- Diet changed to 2 gram sodium diet
- Amlodipine added
DNR/DNI
DVT Prophylaxis: Heparin subq
More than 30 minutes spent in discharge including
Final examination of the patient
Summarizing hospital stay
Instructions for continuing care to all relevant caregivers
Preparation of discharge records, prescriptions, and referral forms
Total time spent (in minutes): 38
Anticipated Discharge: Today
Subjective/Interval History
-
Date of Service: December 02, 2024
Patient was seen and examined. He reported doing good, no fever, chills, chest pain, shortness of breath, abdominal pain, nausea, vomiting or any other symptoms, according to the patient.
Objective Data
-
Labs:
Laboratory Results
12/02/24
05:58
WBC 7.9
Hgb 9.7 L
Hct 28.8 L
Plt Count 245
Sodium 136
Potassium 3.8
Chloride 107
Carbon Dioxide 25
BUN 21 H
Creatinine 0.7
Glucose 86
Calcium 7.8 L
Total Bilirubin 0.7
AST 26
ALT 36
Alkaline Phosphatase 53
Vital Signs:
Vital Signs
Temp Pulse Resp BP Pulse Ox
98.4 F 84 20 156/100 94
12/02/24 07:10 12/02/24 09:21 12/02/24 07:10 12/02/24 09:21 12/02/24 07:10
I&O
12/01/24 12/02/24 12/03/24
06:59 06:59 06:59
Intake Total 960 / 960 2039 / 2039
Output Total 500 / 500
Balance 960 / 960 1540 / 1540
--- NOTE | 2024-12-02 11:19 | W.PN.GS2 ---
Today's Communication / Plan
-
dispo planning
Assessment / Plan
-
Assessment: Patient is a 74 yo M p/w incarcerated nonreducible umbilical hernia with associated bowel obstruction
POD#5 s/p RAL umbilical hernia repair with mesh
AFVSS
Reactive leukocytosis resolved
Doing well with postoperative recovery
Dressing removed at bedside. Incisions healing well. ABD binder as able
Plan:
Regular diet
Multimodal pain control options
Bowel regimen with miralax daily while on narcotics
D/C instructions updated
Stable for discharge from surgical standpoint
Subjective Data
-
Date of Service: December 02, 2024
Pt seen and examined at bedside. Denies n/v. Tolerating diet. Passing small stools but with some constipation. Reports difficulty tolerating po pain meds, but oral dilaudid has worked in the past (has old pill bottle with one tablet left)
Objective Data
-
Intake and Output
12/01/24 12/02/24 12/03/24
06:59 06:59 06:59
Intake Total 960 / 960 2040 / 2040 320 / 320
Output Total 500 / 500
Balance 960 / 960 1540 / 1540 320 / 320
Intake:
Oral fluids 960 / 960 2040 / 2040 320 / 320
Output:
Urine, Voided 500 / 500
Other:
Number of approximated SMALL 1
amounts of urine
Number of approximated MODERATE 2 1 1
amounts of urine
Number of approximated LARGE 3
amounts of urine
Vital Signs
Temp Pulse Resp BP Pulse Ox
98.4 F 84 20 156/100 94
12/02/24 07:10 12/02/24 09:21 12/02/24 07:10 12/02/24 09:21 12/02/24 07:10
Lab Results
12/02/24 05:58
12/02/24 05:58
Calcium 7.8 mg/dl (8.4-10.2) L 12/02/24 05:58
Magnesium 2.3 mg/dl (1.6-2.3) 11/29/24 05:41
Total Bilirubin 0.7 mg/dl (0.2-1.3) 12/02/24 05:58
AST 26 U/L (17-59) 12/02/24 05:58
ALT 36 U/L (0-50) 12/02/24 05:58
Alkaline Phosphatase 53 U/L (38-126) 12/02/24 05:58
Total Protein 4.8 g/dl (6.3-8.2) L 12/02/24 05:58
Albumin 2.8 g/dl (3.5-5.0) L 12/02/24 05:58
Physical Exam
-
NAD AAO x 3
ABD: Soft, nondistended, localized incisional tenderness.
Robotic surgical sites with glue dressings and some ecchymosis
Umbilical dressing removed, no erythema beneath
--- NOTE | 2024-12-02 11:43 | CM ---
Patient seen at bedside on . Patient states that he wants [facility] for home health and [facility] liaison aware. Patient also asking for walker, CM will check with PT. CM will continue to follow for discharge planning needs.
Plan; home with [facility] and watch for walker script need
[2024-12-02] MEDS: TYLENOL 1000 MG PO (12:14)
[2024-12-02] MEDS: MIRALAX 17 GRAMS PO (12:15)
[2024-12-02] MEDS: DILAUDID 2 MG PO (12:15)
--- NOTE | 2024-12-02 12:27 | VNURNOTE ---
Hematology Nurse met with patient to discuss [facility] [place] nurse/therapy, visits, schedule and homebound status. Patient is agreeable and understands that visits at home will be 2-3 x per week to assess and teach medical management.
Patient is aware that [facility] will contact them for start of care in 1-2 days after discharge from .
[facility] referral completed in [facility].
Patient requesting walker. Requested Physical Therapy to deliver walker to patient prior to DC.
--- NOTE | 2024-12-02 13:21 | W.DCSUMMARY ---
Discharge Summary
Discharge Data
Date of Admission: 11/25/24
Date of Discharge: 12/02/24
Total time spent discharging patient (in min): 38
-
Pending Results: No
Hospital Course
74-year-old male with past medical history of bilateral inguinal hernia repair several years prior, COPD, osteoarthritis, mild intermittent asthma and rheumatoid arthritis, presented with lower abdominal pain and intractable nausea vomiting for ~4
days prior to presentation. He had lost 11 pounds and had been unable to tolerate any oral fluids. He had not passed any stool or gas in the ~4 days prior to presentation. Patient was found to have small bowel obstruction, and CT scan showed small
bowel obstruction with transition related to umbilical hernia, but no bowel thickening or soft tissue stranding. Surgeon owner professional engineer was consulted. Patient was started on intravenous fluids due to his NPO status and for his acute kidney injury. Patient
started becoming hypotensive and given his chronic prednisone use at home, stress dose steroids were ordered with significant improvement in his blood pressure. Patient was started on Zosyn antibiotics given fever in the setting of his incarcerated
umbilical hernia. Infectious Disease was consulted. On 11/27/24, patient had robotic umbilical hernia repair with mesh for his incarcerated umbilical hernia. Patient received to 3 days of Zosyn antibiotic, and his antibiotic was stopped as per
Infectious Disease recommendations in the setting of negative blood cultures. Patient soon clinically improved and he was stable for discharge.
Discharge Plan
-
Patient Disposition: Home with Home Care
Discharge Diagnosis/Procedures: #Small bowel obstruction status post robotic umbilical hernia repair with mesh on 11/27/24 for incarcerated umbilical hernia
#Fever, concern for sepsis with fever+bandemia from abdominal source versus stress reaction for umbilical hernia pathology
#Acute kidney injury - RESOLVED - likely prerenal from gastrointestinal losses and reduced oral intake over ~4 days prior to arrival
#History of bilateral inguinal hernia repair
#COPD
#Osteoarthritis
#Mild intermittent asthma
#Rheumatoid arthritis
#Hypertension
Condition: Good
Diet: Low Fat, Low Cholesterol, Low Sodium and 2 Gram Sodium
Activity: No strenuous activity
Additional Activity: No heavy lifting (>20 lbs) or strenuous activities for 4 weeks post-operatively
Driving Restrictions: No driving if too sore or taking narcotics
Bathing Restrictions: OK to Shower
Blood Work: CBC, CMP and Magnesium with your primary care provider in 2 to 3 days. Referral has been placed to the [facility] -- phone number is provided.
Other Services: [facility]
Wound Care: Keep incisions clean and dry. Glue will flake off in 2-3 weeks. Stitches will dissolve. Use abdominal binder as able.
Activity Restrictions/Additional Instructions:
Referral has been placed to the [facility] -- phone number is provided. You should see them this week for further management of your blood pressure and other medical conditions.
If you have any new chest pain, dizziness, shortness of breath, nausea, vomiting, worsening abdominal pain or any other new symptom, please call 911 and return to the emergency room right away.
Referrals:
[facility] [Outside, Family Practice] - in one to two days
Referral Note: Hospitalization Follow-Up
Marvel Modi MD [Active, Surgical] - in two to four weeks
Additional Discharge Medication Instructions: Take over the counter Miralax daily as a stool softener/laxative while taking narcotics.
Amlodipine is a new medication for high blood pressure.
Hydromorphone as needed is a new pain medication.
Prescriptions:
New
hydromorphone 2 mg tablet
2 mg PO Q6H PRN (Reason: severe pain) Qty: 20 0RF
polyethylene glycol 3350 17 gram Powder In Packet
17 g PO DAILY Qty: 30 0RF
amlodipine 2.5 mg Tablet
2.5 mg PO DAILY Qty: 30 1RF
acetaminophen [Tylenol Extra Strength] 500 mg Tablet
1,000 mg PO Q6HPRN PRN (Reason: mild pain/fever>101) Qty: 14 0RF
Continued
montelukast 10 MG tablet
10 mg PO HS
meloxicam 15 mg Tablet
15 mg PO DAILY
prednisone 5 mg Tablet
7.5 mg PO DAILY
fexofenadine 180 mg Tablet
180 mg PO HS
leflunomide 20 mg Tablet
20 mg PO HS
famotidine [Pepcid AC] 20 mg Tablet
20 mg PO DAILY
Trelegy Ellipta 200-62.5-25 mcg Blister With Device
1 inh INHALATION QPM
azelastine 137 mcg (0.1 %) spray,non-aerosol
2 spray INTRANASAL BID PRN (Reason: CONGESTION)
Combivent Respimat 20-100 mcg/actuation mist
1 puff INHALATION Q6HPRN PRN (Reason: SOB)
Discharge Orders:
Discharge Patient (As Directed); Ordered 12/02/24
Ordered By: Wang Palomo
Discharge Date and Time
Discharge Date/Time: 12/02/24 18:08
Print Language: BULGARIAN
--- NOTE | 2024-12-02 15:21 | VNURNOTE ---
Patient informed [employer] that his cousin found his walker at home and no longer needs one. CM and Physical therapist notified.
[2024-12-02 15:30] VITALS: BP 153/101
== END 2024-12-02 18:08 | disposition home health service (06) | DRG 353 ==
LOC: 2 SOUTH 23:22
PROVIDERS: Emergency Medicine; Physician Assistant; ADMITTING PHYSICIAN Hospitalist; ATTENDING PHYSICIAN Hospitalist; CONSULT PHYSICIAN Surgery; EMERGENCY PHYSICIAN Emergency Medicine; FAMILY PHYSICIAN Obstetrics & Gynecology Gynecology; OTHER PHYSICIAN Internal Medicine Infectious Disease
PROC: 0WUF4JZ Supplement Abdominal Wall with Synthetic Substitute, Percutaneous Endoscopic Approach (ICD-10-PCS; 2024-11-27)
PROC: 8E0W4CZ Robotic Assisted Procedure of Trunk Region, Percutaneous Endoscopic Approach (ICD-10-PCS; 2024-11-27)
DX: K42.0 Umbilical hernia with obstruction, without gangrene (principal); A41.9 Sepsis, unspecified organism; K56.601 Complete intestinal obstruction, unspecified as to cause; N17.9 Acute kidney failure, unspecified; M19.90 Unspecified osteoarthritis, unspecified site; M06.9 Rheumatoid arthritis, unspecified; J45.20 Mild intermittent asthma, uncomplicated; M54.12 Radiculopathy, cervical region; R74.01 Elevation of levels of liver transaminase levels; I10 Essential (primary) hypertension; J44.89 Other specified chronic obstructive pulmonary disease; D72.829 Elevated white blood cell count, unspecified; I95.81 Postprocedural hypotension; Z66 Do not resuscitate; Z60.2 Problems related to living alone; Z79.52 Long term (current) use of systemic steroids; Z88.2 Allergy status to sulfonamides; Z88.8 Allergy status to other drugs, medicaments and biological substances
CPT/HCPCS: 74177; 80048; 80053; 81003; 81015; 83605; 83735; 85025; 85027; 87040; 87086; 93005; 94640; 97162; 97166; 97530; 97535; Q9967

== ENCOUNTER → 2024-12-04 11:18 | Outpatient (REF) | payer MEDICARE, SELFPAY ==
[2024-12-04 12:40] LABS: Hematocrit 32.0 % (39.0-52.0); Hemoglobin 10.9 g/dL (13.0-18.0); Mean Corp Hgb Conc. 34.1 g/dL (33.0-37.0); Mean Corpuscular Volume 89.4 fL (80.0-94.0); Nucleated Red Blood Cells % 0 % (-); Platelet Count 376 10^3/uL (130-400); Red Cell Dist. Width 14.4 % (11.5-14.5)
[2024-12-04 14:19] LABS: ALT (SGPT) 41 U/L (0-50); AST (SGOT) 34 U/L (17-59); Albumin 3.6 g/dl (3.5-5.0); Alkaline Phosphatase 59 U/L (38-126); Blood Urea Nitrogen 17 mg/dl (9-20); Calcium 8.6 mg/dl (8.4-10.2); Carbon Dioxide 26 mmol/L (22-30); Chloride 102 mmol/L (98-107); Glucose 104 mg/dl (70-99); Magnesium 1.4 mg/dl (1.6-2.3); Potassium 4.1 mmol/L (3.5-5.1); Sodium 138 mmol/L (135-145); Total Protein 5.8 g/dl (6.3-8.2); eGFR > 60.00
== END ==
LOC: HWLAB 11:18
PROVIDERS: ATTENDING PHYSICIAN Hospitalist; FAMILY PHYSICIAN Physician Assistant Medical
DX: M06.9 Rheumatoid arthritis, unspecified (principal); J45.909 Unspecified asthma, uncomplicated; J44.9 Chronic obstructive pulmonary disease, unspecified; K42.0 Umbilical hernia with obstruction, without gangrene; N17.9 Acute kidney failure, unspecified
CPT/HCPCS: 36415; 80053; 83735; 85025

== ENCOUNTER → 2025-01-06 07:03 | Outpatient (REF) | payer MEDICARE, SELFPAY ==
[2025-01-06 10:31] LABS: Hematocrit 32.0 % (39.0-52.0); Hemoglobin 10.1 g/dL (13.0-18.0); Mean Corp Hgb Conc. 31.6 g/dL (33.0-37.0); Mean Corpuscular Volume 91.2 fL (80.0-94.0); Nucleated Red Blood Cells % 0 % (-); Platelet Count 641 10^3/uL (130-400); Red Cell Dist. Width 15.0 % (11.5-14.5)
[2025-01-06 10:36] LABS: Blood Urea Nitrogen 44 mg/dl (9-20); Glucose 93 mg/dl (70-99)
[2025-01-06 10:37] LABS: ALT (SGPT) 15 U/L (0-50); AST (SGOT) 14 U/L (17-59); Albumin 3.6 g/dl (3.5-5.0); Alkaline Phosphatase 77 U/L (38-126); Calcium 9.8 mg/dl (8.4-10.2); Carbon Dioxide 23 mmol/L (22-30); Chloride 104 mmol/L (98-107); Potassium 5.0 mmol/L (3.5-5.1); Sodium 136 mmol/L (135-145); Total Protein 6.3 g/dl (6.3-8.2); eGFR > 60.00
[2025-01-06 10:52] LABS: C-Reactive Protein 125.00 mg/L (0.0-10.00)
== END ==
LOC: HWLAB 07:03
PROVIDERS: ATTENDING PHYSICIAN Internal Medicine Rheumatology; FAMILY PHYSICIAN Physician Assistant Medical; REFERRING PHYSICIAN Internal Medicine Critical Care Medicine
DX: R06.02 Shortness of breath (principal); M06.09 Rheumatoid arthritis without rheumatoid factor, multiple sites; Z79.899 Other long term (current) drug therapy
CPT/HCPCS: 36415; 80053; 85025; 85652; 86140

== ENCOUNTER → 2025-01-29 09:42 | Outpatient (REF) | payer MEDICARE, SELFPAY ==
[2025-01-29 12:49] LABS: Hematocrit 33.1 % (39.0-52.0); Hemoglobin 10.1 g/dL (13.0-18.0); Mean Corp Hgb Conc. 30.5 g/dL (33.0-37.0); Mean Corpuscular Volume 92.5 fL (80.0-94.0); Nucleated Red Blood Cells % 0 % (-); Platelet Count 330 10^3/uL (130-400); Red Cell Dist. Width 16.3 % (11.5-14.5)
[2025-01-29 13:47] LABS: C-Reactive Protein 5.50 mg/L (0.0-10.00)
[2025-01-29 14:22] LABS: Ferritin 30.3 ng/ml (17.9-464.0)
[2025-01-29 14:24] LABS: PSA, Total - Screen 1.57 ng/ml (0.0-4.0)
[2025-01-29 15:32] LABS: ALT (SGPT) 24 U/L (0-50); AST (SGOT) 23 U/L (17-59); Albumin 4.0 g/dl (3.5-5.0); Alkaline Phosphatase 60 U/L (38-126); Blood Urea Nitrogen 41 mg/dl (9-20); Calcium 9.4 mg/dl (8.4-10.2); Carbon Dioxide 23 mmol/L (22-30); Chloride 107 mmol/L (98-107); Glucose 90 mg/dl (70-99); HDL Cholesterol 73 mg/dl; Potassium 4.4 mmol/L (3.5-5.1); Sodium 136 mmol/L (135-145); Total Protein 6.5 g/dl (6.3-8.2); eGFR > 60.00
[2025-01-29 17:00] LABS: LDL Cholesterol, Calculated 142 mg/dl; Very Low Density Lipoprotein 14 mg/dl (0-30)
== END ==
LOC: HWRCS 09:42
PROVIDERS: ATTENDING PHYSICIAN Physician Assistant Medical; FAMILY PHYSICIAN Nurse Practitioner Adult Health
DX: R70.0 Elevated erythrocyte sedimentation rate (principal); R79.82 Elevated C-reactive protein (CRP); R06.02 Shortness of breath; E78.00 Pure hypercholesterolemia, unspecified; I10 Essential (primary) hypertension; Z12.5 Encounter for screening for malignant neoplasm of prostate; D64.9 Anemia, unspecified
CPT/HCPCS: 36415; 80053; 80061; 82728; 84443; 85025; 85652; 86140; 93306; G0103

== ENCOUNTER → 2025-03-15 07:59 | Outpatient (REF) | payer MEDICARE, SELFPAY | LOC: PAVMRI 07:59 | PROVIDERS: ATTENDING PHYSICIAN Physician Assistant Surgical; FAMILY PHYSICIAN Nurse Practitioner Adult Health | DX: M70.21 Olecranon bursitis, right elbow (principal) | CPT/HCPCS: 73221 ==

== ENCOUNTER → 2025-03-25 10:02 | Outpatient (REF) | payer MEDICARE, SELFPAY ==
[2025-03-25 11:19] LABS: Hematocrit 32.6 % (39.0-52.0); Hemoglobin 10.5 g/dL (13.0-18.0); Mean Corp Hgb Conc. 32.2 g/dL (33.0-37.0); Mean Corpuscular Volume 88.8 fL (80.0-94.0); Nucleated Red Blood Cells % 0 % (-); Platelet Count 285 10^3/uL (130-400); Red Cell Dist. Width 15.2 % (11.5-14.5)
[2025-03-25 13:04] LABS: ALT (SGPT) 25 U/L (0-50); AST (SGOT) 23 U/L (17-59); Albumin 3.9 g/dl (3.5-5.0); Alkaline Phosphatase 57 U/L (38-126); Blood Urea Nitrogen 34 mg/dl (9-20); Calcium 9.5 mg/dl (8.4-10.2); Carbon Dioxide 27 mmol/L (22-30); Chloride 105 mmol/L (98-107); Glucose 93 mg/dl (70-99); Potassium 4.4 mmol/L (3.5-5.1); Sodium 137 mmol/L (135-145); Total Protein 6.6 g/dl (6.3-8.2); eGFR > 60.00
[2025-03-25 15:33] LABS: C-Reactive Protein 6.30 mg/L (0.0-10.00)
== END ==
LOC: REG 10:02
PROVIDERS: ATTENDING PHYSICIAN Orthopaedic Surgery; FAMILY PHYSICIAN Nurse Practitioner Adult Health; OTHER PHYSICIAN Internal Medicine Rheumatology
DX: Z01.818 Encounter for other preprocedural examination (principal); M06.09 Rheumatoid arthritis without rheumatoid factor, multiple sites; Z79.899 Other long term (current) drug therapy
CPT/HCPCS: 36415; 80053; 85025; 85652; 86140; 93005